=== PATIENT | female | born 1935 | race Caucasian/White ===

== ENCOUNTER 2023-04-02 10:30 | Inpatient (IN) ==
--- NOTE | 2023-04-02 10:50 | EKG ---
Test Reason : sob Blood Pressure : */* mmHG Vent. Rate : 102 BPM Atrial Rate : 102 BPM P-R Int : 226 ms QRS Dur : 78 ms QT Int : 346 ms P-R-T Axes : 73 -28 92 degrees QTc Int : 450 ms Sinus tachycardia with 1st degree AV block with premature atrial complexes Abnormal QRS-T angle, consider primary T wave abnormality Abnormal ECG No previous ECGs available Confirmed by Josh Reyna ([id number]) on 04/03/2023 11:44:30 AM Referred By: Confirmed By: Josh Reyna
[2023-04-02 10:58] LABS: ABG HCO3 24.3 mmol/L (22-26)
[2023-04-02 11:02] LABS: BILIRUBIN,URINE NEGATIVE (NEGATIVE); BLOOD/HEMOGLOBIN,URINE 2+ (NEGATIVE); GLUCOSE, URINE 4+ (NEGATIVE); KETONES,URINE 3+ (NEGATIVE); LEUKOCYTE ESTERASE ,URINE NEGATIVE (NEGATIVE); NITRITES,URINE NEGATIVE (NEGATIVE); PROTEIN,URINE 1+ (NEGATIVE); UROBILINOGEN,URINE NORMAL (NORMAL)
[2023-04-02 11:03] LABS: APPEARANCE,URINE CLEAR (CLEAR); COLOR,URINE PALE YELLOW (YELLOW)
--- NOTE | 2023-04-02 11:07 | DR.SOBA ---
HPI Time Seen Time Seen by Provider: 04/02/23 10:55 Primary Care Physician Primary Care Physician: ADILENE Complaints Chief Complaint Doctors Comments: Patient complaining of shortness of breath and congestion off and on for 2 days. Chief Complaint:: PATIENT C/O NOTED TO BE SHORTNESS OF BREATH AND CONGESTION. EMS STATES PATIENT WAS NOTED TO BE HYPOXIC UPON ARRIVAL AT SPO2 AT 79%. PATIENT WAS NOTED TO BE CYANOTIC. PATIENT WAS ADMINSTERED A DUONEB X1 AND PLACED 4LPM VIA N/C. PATIENT STATES SHE BEGAN HAVING COUGH YESTERDAY ALONG WITH SOME SLIGHT DIARRHEA. COVID-19 Coronavirus risk:travel/contact w/high risk person: No Has patient experienced Coronavirus symptoms: No Coronavirus symptoms experienced: Coughing and Shortness of Breath Source History Provided: EMS Mode of Arrival Mode of Arrival: EMS Timing Onset of Chief Complaint: 04/01/23 PMH PMH Past Medical History: Yes Past Medical History: Diabetes and Hypertension Past Medical History Comment: OVERACTIVE BLADDER, CHRONIC PAIN Past Surgical History: No Family History History of Family Medical Conditions: No Social History Does any household member use tobacco: No Alcohol Use: None Do you use any recreational Drugs:: No Lives With: Other Lives Where: Assisted Care Travel Risk Coronavirus risk:travel/contact w/high risk person: No Has patient experienced Coronavirus symptoms: No Coronavirus symptoms experienced: Coughing and Shortness of Breath Infectious screening In the last 2 months have you had wt loss of >10#?: NO Have you had fever, night sweats or hemotysis?: No Have you traveled outside the country in the last 6 months?: No Isolation: Standard ROS Review of Systems Constitutional: Other (cough with sob) Eyes: No Symptoms Reported ENTM: No Symptoms Reported Respiratoy: Non-Productive Cough and Short of Breath Cardiovascular: No Symptoms Reported Gastrointestinal/Abdominal: No Symptoms Reported Genitourinary: No Symptoms Reported Neurological: No Symptoms Reported Musculoskeletal: No Symptoms Reported Integumentary: No Symptoms Reported Hematologic/Lymphatic: No Symptoms Reported Endocrine: No Symptoms Reported Psychiatric: No Symptoms Reported PE Vital Signs Vitals: Vital Signs Temperature 99.4 F Pulse Rate 87 Pulse Rate 85 Pulse Rate 83 Pulse Rate 84 Pulse Rate 85 Pulse Rate 83 Pulse Rate 86 Pulse Rate 96 Pulse Rate 92 Pulse Rate 89 Pulse Rate 91 Pulse Rate 95 Pulse Rate 94 Pulse Rate 94 Pulse Rate 92 Pulse Rate 100 Pulse Rate 98 Pulse Rate 91 Pulse Rate 97 Pulse Rate 100 Pulse Rate 97 Pulse Rate 101 Pulse Rate 97 Pulse Rate 100 Pulse Rate 97 Pulse Rate 99 Pulse Rate 98 Pulse Rate 98 Pulse Rate 92 Pulse Rate 93 Pulse Rate 93 Pulse Rate 96 Pulse Rate 101 Pulse Rate 96 Pulse Rate 100 Pulse Rate 101 Pulse Rate 105 Pulse Rate 104 Pulse Rate 103 Respiratory Rate 23 Respiratory Rate 24 Respiratory Rate 19 Respiratory Rate 22 Respiratory Rate 23 Respiratory Rate 25 Respiratory Rate 23 Respiratory Rate 38 Respiratory Rate 18 Respiratory Rate 15 Respiratory Rate 18 Respiratory Rate 26 Respiratory Rate 19 Respiratory Rate 22 Respiratory Rate 21 Respiratory Rate 40 Respiratory Rate 31 Respiratory Rate 22 Respiratory Rate 23 Respiratory Rate 37 Respiratory Rate 24 Respiratory Rate 23 Respiratory Rate 22 Respiratory Rate 23 Respiratory Rate 23 Respiratory Rate 23 Respiratory Rate 26 Respiratory Rate 24 Respiratory Rate 22 Respiratory Rate 22 Respiratory Rate 35 Respiratory Rate 28 Respiratory Rate 35 Respiratory Rate 31 Respiratory Rate 41 Respiratory Rate 29 Respiratory Rate 32 Respiratory Rate 32 Respiratory Rate 30 Blood Pressure 129/61 Blood Pressure 139/64 Blood Pressure 147/96 Blood Pressure 142/65 Blood Pressure 140/62 Blood Pressure 145/103 Blood Pressure 155/72 Blood Pressure 135/62 Blood Pressure 141/64 Blood Pressure 153/70 Blood Pressure 135/62 Blood Pressure 145/64 Blood Pressure 133/83 Blood Pressure 125/58 O2 Sat by Pulse Oximetry 97 O2 Sat by Pulse Oximetry 98 O2 Sat by Pulse Oximetry 98 O2 Sat by Pulse Oximetry 98 O2 Sat by Pulse Oximetry 98 O2 Sat by Pulse Oximetry 98 O2 Sat by Pulse Oximetry 99 O2 Sat by Pulse Oximetry 97 O2 Sat by Pulse Oximetry 99 O2 Sat by Pulse Oximetry 96 O2 Sat by Pulse Oximetry 96 O2 Sat by Pulse Oximetry 98 O2 Sat by Pulse Oximetry 97 O2 Sat by Pulse Oximetry 97 O2 Sat by Pulse Oximetry 96 O2 Sat by Pulse Oximetry 96 O2 Sat by Pulse Oximetry 95 O2 Sat by Pulse Oximetry 95 O2 Sat by Pulse Oximetry 95 O2 Sat by Pulse Oximetry 94 O2 Sat by Pulse Oximetry 95 O2 Sat by Pulse Oximetry 94 O2 Sat by Pulse Oximetry 94 O2 Sat by Pulse Oximetry 94 O2 Sat by Pulse Oximetry 94 O2 Sat by Pulse Oximetry 94 O2 Sat by Pulse Oximetry 95 O2 Sat by Pulse Oximetry 95 O2 Sat by Pulse Oximetry 95 O2 Sat by Pulse Oximetry 97 O2 Sat by Pulse Oximetry 98 O2 Sat by Pulse Oximetry 97 O2 Sat by Pulse Oximetry 96 O2 Sat by Pulse Oximetry 96 O2 Sat by Pulse Oximetry 96 O2 Sat by Pulse Oximetry 95 O2 Sat by Pulse Oximetry 97 O2 Sat by Pulse Oximetry 96 O2 Sat by Pulse Oximetry 94 General Limitations: No Limitations and Physical Limitation (moderate distress) General Appearance: In Distress (moderATE DISTRESS) Head Head Exam: Normal Inspection, Atraumatic and Normocephalic Eyes Eye exam: Normal Appearance, PERRL and EOMI ENT ENT Exam: Normal Exam, Normal Oropharynx and Normal External Ear Exam Neck Neck Exam: Normal Inspection, Full ROM and Trachea Midline Chest Chest Inspection: Normal Inspection and Symmetric Chest Wall Rise Respiratory Respiratory Exam: Other (rhonchi) Respiratory Exam: Bilateral: Rhonchi Abdominal Exam Abdominal Exam: Normal Inspection, Normal Bowel Sounds and Soft Extremities Extremities Exam: Normal Inspection Back Back Exam: Normal Inspection Neurologic Neurological Exam: Alert, Oriented X3 and CN II-XII Intact Psychiatric Psychiatric Exam: Normal Affect and Normal Mood Skin Skin Exam: Warm, Dry and Intact MDM Differential Diagnosis Differential Diagnosis: Bronchitis, URI and Other (covid,influenza,rsv) COURSE Treatment Treatment: This patient remained remained relatively stable in the ER he had she had to be placed on oxygen at 2 L to maintain O2 sat of 95%. We did do a cardiac work-up on this patient chest x-ray is negative EKG showed sinus rhythm troponin was 62.4 her metabolic panel showed glucose of 221 rest of normal CBC was normal. The patient had an ABG done pH was 7.37 PCO2 was 42 PO2 65 bicarb 24.3. Patient had a COVID respiratory panel done and she was positive for COVID. She had a BMP done that was 396. She had a stool sample done that was negative for occult blood parasites are O AND P. Contact was made with Dr. Paz at 1700 he saw the patient for admission for COVID hypoxia and he stated the patient is to be on remdesivir as protocol Solu-Medrol 80 mg IV every 8 hours and Rocephin IV 1 g IV daily. Patient on oxygen to keep O2 sat greater than 92. Patient was advised of the intent to admit and was agreeable to the admission. ROR Labs Reviewed Laboratory Results Reviewed?: Yes 04/02/23 11:27 04/02/23 11:32 Laboratory: 04/02/23 11:42 Stool - Final WBC 11.9 X10^3/uL (3.6-10.0) H 04/02/23 11:27 RBC 4.51 X10^6/uL (3.5-5.4) 04/02/23 11:27 Hgb 14.3 g/dL (12.0-16.0) 04/02/23 11:27 Hct 43.8 % (36.0-47.0) 04/02/23 11:27 MCV 97.0 fL (80.0-100.0) 04/02/23 11:27 MCH 31.8 pg (27.0-34.0) 04/02/23 11:27 MCHC 32.8 g/dL (33.0-35.0) L 04/02/23 11:27 RDW 15.1 % (11.6-16.5) 04/02/23 11:27 Plt Count 194 X10^3/uL (150.0-450.0) 04/02/23 11: MPV 9.9 fL (7.4-11.0) 04/02/23 11:27 Neut % (Auto) 78.6 % (42.0-75.0) H 04/02/23 11:27 Lymph % (Auto) 9.4 % (21.0-51.0) L 04/02/23 11:27 [place] % (Auto) 11.7 % (0.0-13.0) 04/02/23 11:27 Eos % (Auto) 0.0 % (0.9-2.9) L 04/02/23 11:27 Baso % (Auto) 0.3 % (0.2-1.0) 04/02/23 11:27 Neut # (Auto) 9.3 x10^3/uL (2.2-4.8) H 04/02/23 11:27 Lymph # (Auto) 1.1 X10^3/uL (1.3-2.9) L 04/02/23 11:27 [place] # (Auto) 1.4 x10^3/uL (0.3-0.8) H 04/02/23 11:27 Eos # (Auto) 0.0 x10^3/uL (0.0-0.2) 04/02/23 11:27 Baso # (Auto) 0.0 X10^3/uL (0.0-0.1) 04/02/23 11:27 Absolute Nucleated RBC 0.1 /100WBC 04/02/23 11:27 Sample Site Rbra 04/02/23 10:55 ABG pH 7.370 (7.35-7.45) 04/02/23 10:55 ABG pCO2 42.0 mmHg (35.0-45.0) 04/02/23 10:55 ABG pO2 65.0 mmHg (80.0-100.0) L 04/02/23 10:55 ABG HCO3 24.3 mmol/L (22-26) 04/02/23 10:55 ABG O2 Saturation 92.0 % (90-100) 04/02/23 10:55 ABG Base Excess -1.0 mmol/L (-2.0-2.0) 04/02/23 10:55 Luis Alberto Test N/a 04/02/23 10:55 A-a Gradient 82.0 mmHg 04/02/23 10:55 FiO2 28.0 04/02/23 10:55 Blood Gas Comments Pt shmuel well elj 04/02/23 10:55 Sodium 134 mmol/L (136-145) L 04/02/23 11:32 Corrected Sodium 137 mmol/L (136-145) 04/02/23 11:32 Potassium 3.7 mmol/L (3.5-5.1) 04/02/23 11:32 Chloride 97 mmol/L (98-107) L 04/02/23 11:32 Carbon Dioxide 23.0 mmol/L (21-32) 04/02/23 11:32 BUN 12 mg/dL (7-18) 04/02/23 11:32 Creatinine 0.86 mg/dL (0.55-1.02) 04/02/23 11:32 Est GFR (MDRD) Af Amer > 60 (>60) 04/02/23 11:32 Est GFR (MDRD) Non-Af > 60 (>60) 04/02/23 11:32 Glucose 221 mg/dL (65-99) H 04/02/23 11:32 Calcium 7.8 mg/dL (8.5-10.1) L 04/02/23 11:32 Corrected Calcium 8.6 mg/dL (8.5-10.1) 04/02/23 11:32 Total Bilirubin 0.80 mg/dL (0.2-1.0) 04/02/23 11:32 AST 16 Units/L (15-37) 04/02/23 11:32 ALT 10 Units/L (12-78) L 04/02/23 11:32 Alkaline Phosphatase 73 Units/L (46-116) 04/02/23 11:32 Creatine Kinase 21 Units/L (26-192) L 04/02/23 11:32 Troponin I High Sens 62.6 ng/L (4.0-60.0) H* 04/02/23 11:32 B-Natriuretic Peptide 396 pg/mL (0-79) H 04/02/23 11:32 Total Protein 7.6 g/dL (6.4-8.2) 04/02/23 11:32 Albumin 3.0 g/dL (3.4-5.0) L 04/02/23 11:32 Globulin 4.6 g/dL (2.5-4.5) H 04/02/23 11:32 Albumin/Globulin Ratio 0.7 Ratio (1.1-2.1) L 04/02/23 11:32 Specimen Type Clean catch urine 04/02/23 10:53 Urine Color Pale yellow (YELLOW) 04/02/23 10:53 Urine Appearance Clear (CLEAR) 04/02/23 10:53 Urine pH 5.0 (5.0 - 8.0) 04/02/23 10:53 Ur Specific [place] 1.020 (1.000-1.030) 04/02/23 10:53 Urine Protein 1+ (NEGATIVE) 04/02/23 10:53 Urine Glucose (UA) 4+ (NEGATIVE) 04/02/23 10:53 Urine Ketones 3+ (NEGATIVE) 04/02/23 10:53 Urine Blood 2+ (NEGATIVE) 04/02/23 10:53 Urine Nitrite Negative (NEGATIVE) 04/02/23 10:53 Urine Bilirubin Negative (NEGATIVE) 04/02/23 10:53 Urine Urobilinogen Normal (NORMAL) 04/02/23 10:53 Ur Leukocyte Esterase Negative (NEGATIVE) 04/02/23 10:53 Urine RBC 0-2 /HPF (0-3) 04/02/23 10:53 Urine WBC 3-5 /HPF (0-5) 04/02/23 10:53 Ur Squamous Epith Cells Rare /HPF (NEGATIVE) 04/02/23 10:53 Urine Bacteria Trace /HPF (NEGATIVE) 04/02/23 10:53 Urine Mucus Rare /HPF (NEGATIVE) 04/02/23 10:53 Ur Culture Indicated? No/not indicated 04/02/23 10:53 Stl Occult Blood (IFOB) Negative (NEGATIVE) 04/02/23 11:42 Stl C. diff Tox B Gene Negative (NEGATIVE) 04/02/23 11:42 Stl C. diff 027-NAP1-BI Negative (NEGATIVE) 04/02/23 11:42 SARS-CoV-2 (PCR) Positive (NEGATIVE) A 04/02/23 11:17 Cryptosporid parvum Ag Negative (NEGATIVE) 04/02/23 11:42 Giardia lamblia Ag Negative (NEGATIVE) 04/02/23 11:42 Influenza Type A (PCR) Negative (NEGATIVE) 04/02/23 11:17 Influenza Type B (PCR) Negative (NEGATIVE) 04/02/23 11:17 RSV (PCR) Negative (NEGATIVE) 04/02/23 11:17 S. pyogenes (TEM-PCR) Not detected (NOT DETECT) 04/02/23 13:59 Opioid Opioid Risk Tool Age ([place] if 16-45): No History of Preadolescent Sexual Abuse: No Total: 0 Total Score Risk Category: Low Risk Copyright: Nabor BELL predicting aberrant behaviors Discharge Plan Diagnosis Discharge Problem: COVID-19, Hypoxia Discharge Plan Patient Disposition: 09 ADMITTED INPATIENT Condition: Stable Health Concerns: Post Hospitalization: new medications and changes needed to prevent readmission or further decline. Pt educated and given instructions on all concerns. Plan of Treatment: Continue with present treatment and follow up plan. Pt is to keep follow up appointment as instructed and take medications as ordered. Orders to Discharge Patient Discharge Orders: Transfer (Routine); Ordered 04/02/23 Ordered By: Freeman Bill Follow ups/Referrals Follow ups/Referrals: Edilma Hugo [Primary Care Provider] - 3 days Instructions Stand Alone Forms: Post Hospital Follow Up Care
[2023-04-02 11:11] LABS: BACTERIA,URINE TRACE /HPF (NEGATIVE); RBC,URINE 0-2 /HPF (0-3); SQUAMOUS EPITHELIAL CELL,UR RARE /HPF (NEGATIVE)
[2023-04-02 11:39] LABS: MEAN CORPUSCULAR HEMOGLOBIN 31.8 pg (27.0-34.0)
[2023-04-02 11:42] LABS: BASOPHILS % (AUTO) 0.3 % (0.2-1.0); HEMATOCRIT 43.8 % (36.0-47.0); HEMOGLOBIN 14.3 g/dL (12.0-16.0); LYMPHOCYTES # (AUTO) 1.1 X10^3/uL (1.3-2.9); LYMPHOCYTES % (AUTO) 9.4 % (21.0-51.0); MEAN CORPUSCULAR HGB CONC 32.8 g/dL (33.0-35.0); MEAN PLATELET VOLUME 9.9 fL (7.4-11.0); MONOCYTES # (AUTO) 1.4 x10^3/uL (0.3-0.8); MONOCYTES % (AUTO) 11.7 % (0.0-13.0); NEUTROPHILS # (AUTO) 9.3 x10^3/uL (2.2-4.8); NEUTROPHILS % (AUTO) 78.6 % (42.0-75.0); PLATELET COUNT 194 X10^3/uL (150.0-450.0); RED BLOOD COUNT 4.51 X10^6/uL (3.5-5.4); RED CELL DISTRIBUTION WIDTH 15.1 % (11.6-16.5); WHITE BLOOD COUNT 11.9 X10^3/uL (3.6-10.0)
[2023-04-02 12:04] LABS: ALANINE AMINOTRANSFERASE 10 Units/L (12-78); ALKALINE PHOSPHATASE 73 Units/L (46-116); ASPARTATE AMINO TRANSFERASE 16 Units/L (15-37); BLOOD UREA NITROGEN 12 mg/dL (7-18); CALCIUM 7.8 mg/dL (8.5-10.1); CHLORIDE 97 mmol/L (98-107); COR CA(FOR HYPOALB) 8.6 mg/dL (8.5-10.1); COR NA(FOR HYPERGLY) 137 mmol/L (136-145); CREATINE KINASE 21 Units/L (26-192); CREATININE 0.86 mg/dL (0.55-1.02); GLUCOSE 221 mg/dL (65-99); POTASSIUM 3.7 mmol/L (3.5-5.1); SODIUM 134 mmol/L (136-145); TOTAL PROTEIN 7.6 g/dL (6.4-8.2); eGFR NON BLACK RACES > 60 (>60)
[2023-04-02 12:24] LABS: CRYPTOSPORIDIUM PARVUM ANTIGEN NEGATIVE (NEGATIVE); GIARDIA LAMBLIA ANTIGEN NEGATIVE (NEGATIVE)
--- NOTE | 2023-04-02 14:15 | RAD ---
EXAM:AP chestHISTORY:Congestion hypoxiaCOMPARISON:NoneFINDINGS:Normal heart size with no definite pulmonary infiltrate, CHF or pleural fluid. There is degenerative calcification of the mitral annulus.IMPRESSION:No acute chest findings.THIS IS AN ELECTRONICALLY VERIFIED FINAL [id number]/02/2023 2:11 PM - Electronically signed by Albert Godwin MD
[2023-04-02] MEDS ORDERED: ROCEPHIN VIAL 1 GRAM ONE (17:08)
[2023-04-02] MEDS ORDERED: SOLU-Medrol 40 MG VIAL ONE (17:08)
[2023-04-02] MEDS ORDERED: SOLU-Medrol 40 MG VIAL IVP ONE (17:13)
[2023-04-02] MEDS ORDERED: ROCEPHIN VIAL 1 GRAM IM ONE (17:13)
[2023-04-02] MEDS ORDERED: ROCEPHIN VIAL 1 GRAM IV ONE (17:15)
[2023-04-02] MEDS: ROCEPHIN VIAL 1 GRAM 1 G in NS 100 ML IV 100 ML IV SCH (18:06)
[2023-04-02 18:36] VITALS: BMI 32.1
[2023-04-02] MEDS ORDERED: CONSULT PHARMACY - POTASSIUM & MAGNESIUM XX SCH (19:00)
[2023-04-02] MEDS: XOPENEX 1.25 MG/3 ML NEBULE NEB SCH (20:50)
[2023-04-02] MEDS: NovoLIN R (or HumuLIN R) SUBCUT PRN (20:55)
[2023-04-02] MEDS ORDERED: KLOR-CON PO SCH (21:00)
[2023-04-02] MEDS: SNACK - Diabetic Appropriate PO SCH (21:17)
[2023-04-02] MEDS ORDERED: ULTRAM PO PRN (21:22)
[2023-04-02] MEDS: TYLENOL 325 MG TAB PO PRN (22:00)
[2023-04-02] MEDS: SOLU-Medrol 40 MG VIAL IVP SCH (22:01)
[2023-04-02] MEDS ORDERED: ROBITUSSIN DM PO PRN (23:50)
[2023-04-03] MEDS: SOLU-Medrol 40 MG VIAL IVP SCH ×3 (05:31→22:16)
[2023-04-03] MEDS: XOPENEX 1.25 MG/3 ML NEBULE NEB SCH ×3 (05:40→20:00)
[2023-04-03] MEDS: NovoLIN R (or HumuLIN R) SUBCUT PRN ×4 (05:52→21:04)
[2023-04-03 06:14] LABS: BASOPHILS % (AUTO) 0.2 % (0.2-1.0); HEMATOCRIT 41.7 % (36.0-47.0); HEMOGLOBIN 13.9 g/dL (12.0-16.0); LYMPHOCYTES # (AUTO) 0.8 X10^3/uL (1.3-2.9); LYMPHOCYTES % (AUTO) 8.4 % (21.0-51.0); MEAN CORPUSCULAR HEMOGLOBIN 31.8 pg (27.0-34.0); MEAN CORPUSCULAR HGB CONC 33.3 g/dL (33.0-35.0); MEAN CORPUSCULAR VOLUME 95.6 fL (80.0-100.0); MEAN PLATELET VOLUME 9.2 fL (7.4-11.0); MONOCYTES # (AUTO) 0.3 x10^3/uL (0.3-0.8); MONOCYTES % (AUTO) 3.4 % (0.0-13.0); NEUTROPHILS # (AUTO) 7.9 x10^3/uL (2.2-4.8); PLATELET COUNT 222 X10^3/uL (150.0-450.0); RED BLOOD COUNT 4.37 X10^6/uL (3.5-5.4); RED CELL DISTRIBUTION WIDTH 15.1 % (11.6-16.5)
[2023-04-03 06:28] LABS: ALANINE AMINOTRANSFERASE 9 Units/L (12-78); ALBUMIN 2.8 g/dL (3.4-5.0); ALKALINE PHOSPHATASE 66 Units/L (46-116); ASPARTATE AMINO TRANSFERASE 14 Units/L (15-37); BLOOD UREA NITROGEN 23 mg/dL (7-18); CALCIUM 8.4 mg/dL (8.5-10.1); CARBON DIOXIDE 22.7 mmol/L (21-32); CHLORIDE 99 mmol/L (98-107); COR CA(FOR HYPOALB) 9.4 mg/dL (8.5-10.1); COR NA(FOR HYPERGLY) 139 mmol/L (136-145); CREATININE 0.74 mg/dL (0.55-1.02); GLUCOSE 271 mg/dL (65-99); POTASSIUM 4.3 mmol/L (3.5-5.1); SODIUM 135 mmol/L (136-145); TOTAL PROTEIN 7.5 g/dL (6.4-8.2); eGFR NON BLACK RACES > 60 (>60)
[2023-04-03] MEDS: ROCEPHIN VIAL 1 GRAM 1 G in NS 100 ML IV 100 ML IV SCH (09:06)
[2023-04-03] MEDS: LOVENOX INJ 40 MG SYR SC SCH (09:08)
[2023-04-03] MEDS ORDERED: ZOFRAN INJ 4 MG VIAL IVP ONE (09:48)
[2023-04-03] MEDS ORDERED: REMDESIVIR 200 MG in NS 100 ML IV 140 ML IV ONE (09:49)
[2023-04-03] MEDS ORDERED: REMDESIVIR 200 MG in NS 250 ML IV 250 ML IV NR (09:49)
[2023-04-03] MEDS: PROTONIX INJ 40 MG VIAL IVP SCH ×2 (11:05→20:46)
[2023-04-03] MEDS: TYLENOL 325 MG TAB PO PRN ×2 (11:06→17:04)
[2023-04-03] MEDS: NS 1,000 ML IV 1,000 ML IV SCH (11:17)
[2023-04-03] MEDS: ROBITUSSIN DM PO SCH ×4 (13:26→22:16)
[2023-04-03] MEDS: SNACK - Diabetic Appropriate PO SCH (19:32)
[2023-04-04] MEDS: ROBITUSSIN DM PO SCH ×4 (01:13→14:11)
[2023-04-04] MEDS: XOPENEX 1.25 MG/3 ML NEBULE NEB SCH ×3 (05:44→21:03)
[2023-04-04] MEDS: SOLU-Medrol 40 MG VIAL IVP SCH ×3 (05:47→21:52)
[2023-04-04] MEDS: NovoLIN R (or HumuLIN R) SUBCUT PRN ×4 (05:48→21:59)
--- NOTE | 2023-04-04 06:05 | RAD ---
EXAM:Portable chestHISTORY:Shortness of breath, COVIDCOMPARISON:04/02/2023FINDINGS:Heart is enlarged. No congestive heart failure is noted. Aorta is calcified and mildly ectatic. Lungs are free of acute infiltrates. No pleural effusions are identified. Bony thorax is unremarkable.IMPRESSION:Mild cardiomegaly without congestive heart failureNo definite infiltratesTHIS IS AN ELECTRONICALLY VERIFIED FINAL [id number]/04/2023 6:01 AM - Electronically signed by Sung Oakley MD
[2023-04-04 06:08] LABS: BASOPHILS % (AUTO) 0.3 % (0.2-1.0); HEMATOCRIT 39.9 % (36.0-47.0); HEMOGLOBIN 13.2 g/dL (12.0-16.0); LYMPHOCYTES # (AUTO) 0.6 X10^3/uL (1.3-2.9); LYMPHOCYTES % (AUTO) 5.3 % (21.0-51.0); MEAN CORPUSCULAR HEMOGLOBIN 31.3 pg (27.0-34.0); MEAN PLATELET VOLUME 9.4 fL (7.4-11.0); MONOCYTES # (AUTO) 0.5 x10^3/uL (0.3-0.8); NEUTROPHILS # (AUTO) 10.7 x10^3/uL (2.2-4.8); NEUTROPHILS % (AUTO) 90.4 % (42.0-75.0); PLATELET COUNT 229 X10^3/uL (150.0-450.0); RED BLOOD COUNT 4.21 X10^6/uL (3.5-5.4); RED CELL DISTRIBUTION WIDTH 14.7 % (11.6-16.5); WHITE BLOOD COUNT 11.8 X10^3/uL (3.6-10.0)
[2023-04-04 06:24] LABS: ALANINE AMINOTRANSFERASE < 6 Units/L (12-78); ALBUMIN 2.5 g/dL (3.4-5.0); ALKALINE PHOSPHATASE 57 Units/L (46-116); ASPARTATE AMINO TRANSFERASE 9 Units/L (15-37); BLOOD UREA NITROGEN 31 mg/dL (7-18); CALCIUM 8.2 mg/dL (8.5-10.1); CARBON DIOXIDE 25.2 mmol/L (21-32); CHLORIDE 96 mmol/L (98-107); COR CA(FOR HYPOALB) 9.4 mg/dL (8.5-10.1); COR NA(FOR HYPERGLY) 135 mmol/L (136-145); CREATININE 0.73 mg/dL (0.55-1.02); GLUCOSE 316 mg/dL (65-99); POTASSIUM 4.6 mmol/L (3.5-5.1); SODIUM 130 mmol/L (136-145); TOTAL PROTEIN 6.9 g/dL (6.4-8.2); eGFR NON BLACK RACES > 60 (>60)
[2023-04-04 07:01] LABS: BAND NEUTROPHILS % 3 % (0-10); PLATELET MORPHOLOGY COMMENT NORMAL (NORMAL)
--- NOTE | 2023-04-04 07:28 | RAD ---
EXAM:Portable chestHISTORY:COVID, shortness of breathCOMPARISON:04/03/2023FINDINGS:Hear t remains mildly enlarged. Criselda are normal. No congestive heart failure is noted. No acute infiltrates or pleural effusions are identified. Bony thorax is unremarkable.IMPRESSION:Mild cardiomegaly without congestive heart failureNo acute infiltratesTHIS IS AN ELECTRONICALLY VERIFIED FINAL [id number]/04/2023 7:25 AM - Electronically signed by Sung Oakley MD
[2023-04-04] MEDS: PROTONIX INJ 40 MG VIAL IVP SCH ×2 (08:49→21:52)
--- NOTE | 2023-04-04 08:49 | DR.H&P ---
H&P History & Physical for Day of: H&P Date: 04/02/23 Chief Complaint Chief Complaint: WEAKNESS, SOB Allergies Allergies Allergy/AdvReac Type Severity Reaction Status Date / Time codeine Allergy Verified 04/02/23 10:53 History of Present Illness History of Present Illness: PT IS 87 WF, ER ADMISSION AFTER PRESENTING WITH C/O SHORTNESS OF BREATH AND CONGESTION. EMS STATES PATIENT WAS NOTED TO BE HYPOXIC UPON ARRIVAL AT SPO2 AT 79%. PATIENT WAS NOTED TO BE CYANOTIC. PATIENT WAS ADMINSTERED A DUONEB X1 AND PLACED 4LPM VIA N/C. PATIENT STATES SHE BEGAN HAVING COUGH YESTERDAY ALONG WITH SOME SLIGHT DIARRHEA. PT LIVES AT AN ASSISTED LIVING IN [place] AND DENIES ANY KNOWN CAD. PT ADMITTED FOR TREATMENT OF ACUTE ILLNESS. Past Medical History Past Medical History: Diabetes and Hypertension Past Surgical History Surgical History: Hysterectomy and Tonsillectomy Family History Family Medical History: Diabetes Mellitus, Cancer and Heart Failure Social History Does any household member use tobacco: No Alcohol Use: None Drug Use: None Labs 04/04/23 05:36 04/04/23 05:36 Labs: 04/02/23 11:42 Stool Stool Culture - Final 04/02/23 11:42 Stool - Final 04/02/23 21:10 Sputum - Expectorated Sputum Sputum Culture - Final 04/02/23 21:10 Sputum - Expectorated Sputum - Final Laboratory WBC 11.8 X10^3/uL (3.6-10.0) H 04/04/23 05:36 RBC 4.21 X10^6/uL (3.5-5.4) 04/04/23 05:36 Hgb 13.2 g/dL (12.0-16.0) 04/04/23 05:36 Hct 39.9 % (36.0-47.0) 04/04/23 05:36 MCV 95.0 fL (80.0-100.0) 04/04/23 05:36 MCH 31.3 pg (27.0-34.0) 04/04/23 05:36 MCHC 33.0 g/dL (33.0-35.0) 04/04/23 05:36 RDW 14.7 % (11.6-16.5) 04/04/23 05:36 Plt Count 229 X10^3/uL (150.0-450.0) 04/04/23 05:36 Plt Count Comment Adequate (ADEQUATE) 04/04/23 05:36 MPV 9.4 fL (7.4-11.0) 04/04/23 05:36 Neut % (Auto) 90.4 % (42.0-75.0) H 04/04/23 05:36 Lymph % (Auto) 5.3 % (21.0-51.0) L 04/04/23 05:36 [place] % (Auto) 4.0 % (0.0-13.0) 04/04/23 05:36 Eos % (Auto) 0.0 % (0.9-2.9) L 04/04/23 05:36 Baso % (Auto) 0.3 % (0.2-1.0) 04/04/23 05:36 Neut # (Auto) 10.7 x10^3/uL (2.2-4.8) H 04/04/23 05:36 Lymph # (Auto) 0.6 X10^3/uL (1.3-2.9) L 04/04/23 05:36 [place] # (Auto) 0.5 x10^3/uL (0.3-0.8) 04/04/23 05:36 Eos # (Auto) 0.0 x10^3/uL (0.0-0.2) 04/04/23 05:36 Baso # (Auto) 0.0 X10^3/uL (0.0-0.1) 04/04/23 05:36 Absolute Nucleated RBC 0.0 /100WBC 04/04/23 05:36 Total Counted 100 04/04/23 05:36 Neutrophils % (Manual) 89 % (39-76) H 04/04/23 05:36 Band Neutrophils % 3 % (0-10) 04/04/23 05:36 Lymphocytes % (Manual) 5 % (13-43) L 04/04/23 05:36 Monocytes % (Manual) 3 % (4-9) L 04/04/23 05:36 Plt Morphology Comment Normal (NORMAL) 04/04/23 05:36 RBC Morphology Normal (NORMAL) 04/04/23 05:36 Sample Site [facility] 04/02/23 10:55 ABG pH 7.370 (7.35-7.45) 04/02/23 10:55 ABG pCO2 42.0 mmHg (35.0-45.0) 04/02/23 10:55 ABG pO2 65.0 mmHg (80.0-100.0) L 04/02/23 10:55 ABG HCO3 24.3 mmol/L (22-26) 04/02/23 10:55 ABG O2 Saturation 92.0 % (90-100) 04/02/23 10:55 ABG Base Excess -1.0 mmol/L (-2.0-2.0) 04/02/23 10:55 Luis Alberto Test N/a 04/02/23 10:55 A-a Gradient 82.0 mmHg 04/02/23 10:55 FiO2 28.0 04/02/23 10:55 Blood Gas Comments Pt shmuel well elj 04/02/23 10:55 Sodium 130 mmol/L (136-145) L 04/04/23 05:36 Corrected Sodium 135 mmol/L (136-145) L 04/04/23 05:36 Potassium 4.6 mmol/L (3.5-5.1) 04/04/23 05:36 Chloride 96 mmol/L (98-107) L 04/04/23 05:36 Carbon Dioxide 25.2 mmol/L (21-32) 04/04/23 05:36 BUN 31 mg/dL (7-18) H 04/04/23 05:36 Creatinine 0.73 mg/dL (0.55-1.02) 04/04/23 05:36 Est GFR (MDRD) Af Amer > 60 (>60) 04/04/23 05:36 Est GFR (MDRD) Non-Af > 60 (>60) 04/04/23 05:36 Glucose 316 mg/dL (65-99) H 04/04/23 05:36 POC Glucose (mg/dL) 313 mg/dL (65-99) H 04/04/23 05:29 Calcium 8.2 mg/dL (8.5-10.1) L 04/04/23 05:36 Corrected Calcium 9.4 mg/dL (8.5-10.1) 04/04/23 05:36 Magnesium 2.1 mg/dL (2.0-2.9) 04/02/23 11:32 Total Bilirubin 0.50 mg/dL (0.2-1.0) 04/04/23 05:36 AST 9 Units/L (15-37) L 04/04/23 05:36 ALT < 6 Units/L (12-78) L 04/04/23 05:36 Alkaline Phosphatase 57 Units/L (46-116) 04/04/23 05:36 Creatine Kinase 10 Units/L (26-192) L 04/03/23 21:00 Troponin I High Sens 51.9 ng/L (4.0-60.0) 04/03/23 21:00 B-Natriuretic Peptide 396 pg/mL (0-79) H 04/02/23 11:32 Total Protein 6.9 g/dL (6.4-8.2) 04/04/23 05:36 Albumin 2.5 g/dL (3.4-5.0) L 04/04/23 05:36 Globulin 4.4 g/dL (2.5-4.5) 04/04/23 05:36 Albumin/Globulin Ratio 0.6 Ratio (1.1-2.1) L 04/04/23 05:36 Specimen Type Clean catch urine 04/02/23 10:53 Urine Color Pale yellow (YELLOW) 04/02/23 10:53 Urine Appearance Clear (CLEAR) 04/02/23 10:53 Urine pH 5.0 (5.0 - 8.0) 04/02/23 10:53 Ur Specific [place] 1.020 (1.000-1.030) 04/02/23 10:53 Urine Protein 1+ (NEGATIVE) 04/02/23 10:53 Urine Glucose (UA) 4+ (NEGATIVE) 04/02/23 10:53 Urine Ketones 3+ (NEGATIVE) 04/02/23 10:53 Urine Blood 2+ (NEGATIVE) 04/02/23 10:53 Urine Nitrite Negative (NEGATIVE) 04/02/23 10:53 Urine Bilirubin Negative (NEGATIVE) 04/02/23 10:53 Urine Urobilinogen Normal (NORMAL) 04/02/23 10:53 Ur Leukocyte Esterase Negative (NEGATIVE) 04/02/23 10:53 Urine RBC 0-2 /HPF (0-3) 04/02/23 10:53 Urine WBC 3-5 /HPF (0-5) 04/02/23 10:53 Ur Squamous Epith Cells Rare /HPF (NEGATIVE) 04/02/23 10:53 Urine Bacteria Trace /HPF (NEGATIVE) 04/02/23 10:53 Urine Mucus Rare /HPF (NEGATIVE) 04/02/23 10:53 Ur Culture Indicated? No/not indicated 04/02/23 10:53 Stl Occult Blood (IFOB) Negative (NEGATIVE) 04/02/23 11:42 Stl C. diff Tox B Gene Negative (NEGATIVE) 04/02/23 11:42 Stl C. diff 027-NAP1-BI Negative (NEGATIVE) 04/02/23 11:42 SARS-CoV-2 (PCR) Positive (NEGATIVE) A 04/02/23 11:17 Cryptosporid parvum Ag Negative (NEGATIVE) 04/02/23 11:42 Giardia lamblia Ag Negative (NEGATIVE) 04/02/23 11:42 Influenza Type A (PCR) Negative (NEGATIVE) 04/02/23 11:17 Influenza Type B (PCR) Negative (NEGATIVE) 04/02/23 11:17 RSV (PCR) Negative (NEGATIVE) 04/02/23 11:17 S. pyogenes (TEM-PCR) Not detected (NOT DETECT) 04/02/23 13:59 Review of Systems Constitutional: Fever, Chills and Weakness Eyes: No Symptoms Reported ENT: Nose Congestion Respiratory: Shortness of Breath Cardiovascular: No Symptoms Reported Gastrointestinal: Diarrhea and Other (NO APPETITE) Genitourinary: No Symptoms Reported Musculoskeletal: No Symptoms Reported Skin: No Symptoms Reported Neurological: Weakness Physical Exam Vital Signs: Vital Signs Temperature 97.8 F Pulse Rate [Brachial] 60 Respiratory Rate 18 Blood Pressure [Left Arm] 144/71 O2 Sat by Pulse Oximetry 97 Oriented: Normal Eyes: Normal Ear: Normal Nose: Normal Throat: Dry Respiratory: Diminished Throughout Cardiovascular: Normal : Normal Auscultation: Bowel Sounds: Normal Palpation: Normal Tenderness: Normal Skin: Normal Musculoskeletal: Motor Deficit Mood Description: Calm Speech Pattern: Clear and Appropriate Assessment/Plan (1) COVID-19: Narrative Support Text: ADMIT, SUPPLEMENTAL O2, RESP THERAPY IV HYDRATON, I&OS SERIAL CE AND EKG CP CONTROL, VERIFY HOME MEDICATIONS IV SOLUMEDROL STARTED IN THE ER Status: Acute (2) Hypoxia: Status: Acute (3) Dehydration: Status: Acute (4) Abnormal cardiac enzyme level: Status: Acute
[2023-04-04] MEDS: REMDESIVIR 100 MG in NS 250 ML IV 250 ML IV SCH (08:51)
[2023-04-04] MEDS: LOVENOX INJ 40 MG SYR SC SCH (08:54)
--- NOTE | 2023-04-04 08:55 | PCM.PROG ---
Progress Note Progress Note for Day of Date of Exam: 04/03/23 Subjective Subjective: PT IS 87 WF, ER ADMISSION WITH COVID 19 AND HYPOXIA. PT HAD ELEVATED TROPONIN LEVELS ON ADMISSION. RESULTS REVIEWED WITH PATIENT AND FAMILY AT BEDSIDE. THEY REPORTED PMH OF DM AND HTN, DENIES ANY KNOWN CAD. FAMILY REQUESTED REMDESIVIRT TREATMENT. PT CO NAUSEA AND DIFFUSE WEAKNESS. PT IS CURRENTLY ON IV SOLU MEDROL, SUPPLEMENTAL O2 AND RESP THERAPY. PT CO INDIGESTION SYMPTOMS. PT WAS STARTED ON PROTONIX BID AND CONTINUE GENTLE IV HYDRATION. PT NEEDS REPEAT SERIAL CE AND CXR. CONTINUE BP MONITORING AND CARDIAC MONITORING. Past Medical Family Social History Allergies: Allergies codeine Allergy (Verified 04/02/23 10:53) Vital Signs and I&O's Vital Signs: Vital Signs Temperature 98.4 F Temperature 97.8 F Pulse Rate [Brachial] 75 Pulse Rate [Brachial] 60 Respiratory Rate 18 Respiratory Rate 18 Blood Pressure [Left Arm] 152/68 Blood Pressure [Left Arm] 144/71 O2 Sat by Pulse Oximetry 95 O2 Sat by Pulse Oximetry 97 Intake and Output: Intake & Output 04/01/23 04/02/23 04/03/23 04/04/23 11:59 11:59 11:59 11:59 Intake Total 237 / 237 787 / 787 Output Total 1220 / 1220 1350 / 1350 Balance -983 / -983 -563 / -563 Physical Exam Oriented: Normal Eyes: Normal Ear: Normal Nose: Normal Throat: Dry Cardiovascular: Normal : Normal Auscultation: Bowel Sounds: Normal Tenderness: Normal Skin: Normal Musculoskeletal: Motor Deficit Mood Description: Calm Speech Pattern: Clear and Appropriate Laboratory and Diagnostics 04/04/23 05:36 04/04/23 05:36 Labs: 04/02/23 11:42 Stool Stool Culture - Final 04/02/23 11:42 Stool - Final 04/02/23 21:10 Sputum - Expectorated Sputum Sputum Culture - Final 04/02/23 21:10 Sputum - Expectorated Sputum - Final Laboratory WBC 11.8 X10^3/uL (3.6-10.0) H 04/04/23 05:36 RBC 4.21 X10^6/uL (3.5-5.4) 04/04/23 05:36 Hgb 13.2 g/dL (12.0-16.0) 04/04/23 05:36 Hct 39.9 % (36.0-47.0) 04/04/23 05:36 MCV 95.0 fL (80.0-100.0) 04/04/23 05:36 MCH 31.3 pg (27.0-34.0) 04/04/23 05:36 MCHC 33.0 g/dL (33.0-35.0) 04/04/23 05:36 RDW 14.7 % (11.6-16.5) 04/04/23 05:36 Plt Count 229 X10^3/uL (150.0-450.0) 04/04/23 05:36 Plt Count Comment Adequate (ADEQUATE) 04/04/23 05:36 MPV 9.4 fL (7.4-11.0) 04/04/23 05:36 Neut % (Auto) 90.4 % (42.0-75.0) H 04/04/23 05:36 Lymph % (Auto) 5.3 % (21.0-51.0) L 04/04/23 05:36 [place] % (Auto) 4.0 % (0.0-13.0) 04/04/23 05:36 Eos % (Auto) 0.0 % (0.9-2.9) L 04/04/23 05:36 Baso % (Auto) 0.3 % (0.2-1.0) 04/04/23 05:36 Neut # (Auto) 10.7 x10^3/uL (2.2-4.8) H 04/04/23 05:36 Lymph # (Auto) 0.6 X10^3/uL (1.3-2.9) L 04/04/23 05:36 [place] # (Auto) 0.5 x10^3/uL (0.3-0.8) 04/04/23 05:36 Eos # (Auto) 0.0 x10^3/uL (0.0-0.2) 04/04/23 05:36 Baso # (Auto) 0.0 X10^3/uL (0.0-0.1) 04/04/23 05:36 Absolute Nucleated RBC 0.0 /100WBC 04/04/23 05:36 Total Counted 100 04/04/23 05:36 Neutrophils % (Manual) 89 % (39-76) H 04/04/23 05:36 Band Neutrophils % 3 % (0-10) 04/04/23 05:36 Lymphocytes % (Manual) 5 % (13-43) L 04/04/23 05:36 Monocytes % (Manual) 3 % (4-9) L 04/04/23 05:36 Plt Morphology Comment Normal (NORMAL) 04/04/23 05:36 RBC Morphology Normal (NORMAL) 04/04/23 05:36 Sample Site Rb 04/02/23 10:55 ABG pH 7.370 (7.35-7.45) 04/02/23 10:55 ABG pCO2 42.0 mmHg (35.0-45.0) 04/02/23 10:55 ABG pO2 65.0 mmHg (80.0-100.0) L 04/02/23 10:55 ABG HCO3 24.3 mmol/L (22-26) 04/02/23 10:55 ABG O2 Saturation 92.0 % (90-100) 04/02/23 10:55 ABG Base Excess -1.0 mmol/L (-2.0-2.0) 04/02/23 10:55 Luis Alberto Test N/a 04/02/23 10:55 A-a Gradient 82.0 mmHg 04/02/23 10:55 FiO2 28.0 04/02/23 10:55 Blood Gas Comments Pt shmuel well elj 04/02/23 10:55 Sodium 130 mmol/L (136-145) L 04/04/23 05:36 Corrected Sodium 135 mmol/L (136-145) L 04/04/23 05:36 Potassium 4.6 mmol/L (3.5-5.1) 04/04/23 05:36 Chloride 96 mmol/L (98-107) L 04/04/23 05:36 Carbon Dioxide 25.2 mmol/L (21-32) 04/04/23 05:36 BUN 31 mg/dL (7-18) H 04/04/23 05:36 Creatinine 0.73 mg/dL (0.55-1.02) 04/04/23 05:36 Est GFR (MDRD) Af Amer > 60 (>60) 04/04/23 05:36 Est GFR (MDRD) Non-Af > 60 (>60) 04/04/23 05:36 Glucose 316 mg/dL (65-99) H 04/04/23 05:36 POC Glucose (mg/dL) 313 mg/dL (65-99) H 04/04/23 05:29 Calcium 8.2 mg/dL (8.5-10.1) L 04/04/23 05:36 Corrected Calcium 9.4 mg/dL (8.5-10.1) 04/04/23 05:36 Magnesium 2.1 mg/dL (2.0-2.9) 04/02/23 11:32 Total Bilirubin 0.50 mg/dL (0.2-1.0) 04/04/23 05:36 AST 9 Units/L (15-37) L 04/04/23 05:36 ALT < 6 Units/L (12-78) L 04/04/23 05:36 Alkaline Phosphatase 57 Units/L (46-116) 04/04/23 05:36 Creatine Kinase 10 Units/L (26-192) L 04/03/23 21:00 Troponin I High Sens 51.9 ng/L (4.0-60.0) 04/03/23 21:00 B-Natriuretic Peptide 396 pg/mL (0-79) H 04/02/23 11:32 Total Protein 6.9 g/dL (6.4-8.2) 04/04/23 05:36 Albumin 2.5 g/dL (3.4-5.0) L 04/04/23 05:36 Globulin 4.4 g/dL (2.5-4.5) 04/04/23 05:36 Albumin/Globulin Ratio 0.6 Ratio (1.1-2.1) L 04/04/23 05:36 Specimen Type Clean catch urine 04/02/23 10:53 Urine Color Pale yellow (YELLOW) 04/02/23 10:53 Urine Appearance Clear (CLEAR) 04/02/23 10:53 Urine pH 5.0 (5.0 - 8.0) 04/02/23 10:53 Ur Specific [place] 1.020 (1.000-1.030) 04/02/23 10:53 Urine Protein 1+ (NEGATIVE) 04/02/23 10:53 Urine Glucose (UA) 4+ (NEGATIVE) 04/02/23 10:53 Urine Ketones 3+ (NEGATIVE) 04/02/23 10:53 Urine Blood 2+ (NEGATIVE) 04/02/23 10:53 Urine Nitrite Negative (NEGATIVE) 04/02/23 10:53 Urine Bilirubin Negative (NEGATIVE) 04/02/23 10:53 Urine Urobilinogen Normal (NORMAL) 04/02/23 10:53 Ur Leukocyte Esterase Negative (NEGATIVE) 04/02/23 10:53 Urine RBC 0-2 /HPF (0-3) 04/02/23 10:53 Urine WBC 3-5 /HPF (0-5) 04/02/23 10:53 Ur Squamous Epith Cells Rare /HPF (NEGATIVE) 04/02/23 10:53 Urine Bacteria Trace /HPF (NEGATIVE) 04/02/23 10:53 Urine Mucus Rare /HPF (NEGATIVE) 04/02/23 10:53 Ur Culture Indicated? No/not indicated 04/02/23 10:53 Stl Occult Blood (IFOB) Negative (NEGATIVE) 04/02/23 11:42 Stl C. diff Tox B Gene Negative (NEGATIVE) 04/02/23 11:42 Stl C. diff 027-NAP1-BI Negative (NEGATIVE) 04/02/23 11:42 SARS-CoV-2 (PCR) Positive (NEGATIVE) A 04/02/23 11:17 Cryptosporid parvum Ag Negative (NEGATIVE) 04/02/23 11:42 Giardia lamblia Ag Negative (NEGATIVE) 04/02/23 11:42 Influenza Type A (PCR) Negative (NEGATIVE) 04/02/23 11:17 Influenza Type B (PCR) Negative (NEGATIVE) 04/02/23 11:17 RSV (PCR) Negative (NEGATIVE) 04/02/23 11:17 S. pyogenes (TEM-PCR) Not detected (NOT DETECT) 04/02/23 13:59 Plan (1) COVID-19: Status: Acute Narrative Support Text: CONTINUE IV HYDRATION REMDESIVIR, IV ATBX REPEAT AM CXR, RESP THERAPY SUPPLEMENTAL O2, CARDIAC MONITORING (2) Hypoxia: Status: Acute (3) Dehydration: Status: Acute (4) Abnormal cardiac enzyme level: Status: Acute
[2023-04-04] MEDS: NS 1,000 ML IV 1,000 ML IV SCH (11:52)
[2023-04-04] MEDS: ROCEPHIN VIAL 1 GRAM 1 G in NS 100 ML IV 100 ML IV SCH (11:52)
[2023-04-04] MEDS ORDERED: NORCO 5/325 MG TAB PO PRN (13:38)
[2023-04-04] MEDS: JANUVIA PO SCH (14:35)
[2023-04-04] MEDS: NEURONTIN TAB 600 MG PO SCH ×2 (16:29→21:52)
--- NOTE | 2023-04-04 17:52 | PCM.PROG ---
Progress Note - Progress Note for Day of Date of Exam: 04/04/23 - Subjective Subjective: IS A 87 YEAR OLD PATIENT OF OURS. SHE IS CURRENTLY INPATIENT STATUS FOR TREATMENT OF COVID-19, HYPOXIA, DEHYDRATION, AND ABNORMAL CARDIAC ENZYMES. SHE HAS A PMH OF DM II, HTN, OVERACTIVE BLADDER, AND CHRONIC PAIN. SHE DENIES HX OF CAD. ACCORDING TO PATIENT, HER SX OF COUGH, SOB, AND CONGESTION STARTED TWO DAYS PRIOR TO ADMISSION. SHE WAS HYPOXIC WITH OXYGEN SATURATIONS IN THE UPPER 70s UPON EMS ARRIVAL. TODAY, SHE IS ALERT AND ORIENTED, LYING IN BED ON MORNING ROUNDS. SHE COMPLAINS OF GENERALIZED WEAKNESS AND NAUSEA THIS MORNING. SHE DENIES SIGNIFICANT IMPROVEMENT IN SX SINCE ADMISSION. ON EXAMINATION, HEART IS REGULAR IN RATE AND RHYTHM. BILATERAL LUNGS ARE NOTED WITH DIMINISHED LUNG SOUNDS THROUGHOUT. ABDOMEN IS ROUND, SOFT, AND NON-TENDER WITH NORMAL BOWEL SOUNDS NOTED IN ALL QUADRANTS. THERE IS GOOD RANGE OF MOTION TO UPPER AND LOWER EXTREMITIES WITH NO EDEMA NOTED. HER VITALS THIS MORNING ARE: 98.4-75-18-95%-152/68. LABS WERE OBTAINED. WBC 11.8, RBC 4.21, HGB 13.2, RBC 39.9, PLT COUNT 229, SODIUM 130, POTASSIUM 4.6, CHLORIDE 96, BUN 31, CREATININE 0.73, GLUCOSE 316, CALCIUM 8.2, TOTAL BILI 0.50, AST 9, ALT <6, ALK PHOS 57, TOTAL PROTEIN 6.9, ALBUMIN 2.5. STOOL STUDIES WERE NEGATIVE. SPUTUM CULTURE WAS SET UP. A CHEST XRAY WAS OBTAINED AND REVEALED: Mild cardiomegaly without congestive heart failure. No acute infiltrates. SHE IS CURRENTLY RECEVING NORMAL SALINE AT 75 ML/HR, REMDESIVIR 100MG IV DAILY, ROCEPHIN 1G IV DAILY, LOVENOX 40MG SC DAILY, SOLU-MEDROL 80MG IV Q8H, PROTONIX 40MG IV BID, XOPENEX NEB TX TID, HUMULIN R SLIDING SCLAE, AND HER HOME MEDICATONS WERE RESUMED. OTHERWISE, WE WILL FOLLOW-UP WITH AM LABS AND CONTINUE TO MONITOR. TIME SPENT ON CLINICAL ASSESSMENT, REVIEWING LABS AND IMAGING, DECISION MAKING, AND DOCUMENTATION GREATER THAN 45 MINUTES. - Past Medical Family Social History Past Med/Fam/Surg Hx: No changes since H&P Allergies: Allergies codeine Allergy (Verified 04/02/23 10:53) - Review of Systems ROS: No change since H&P - Vital Signs and I&O's Vital Signs: Vital Signs Temperature 98.3 F Temperature 98.3 F Pulse Rate [Brachial] 80 Pulse Rate [Brachial] 75 Respiratory Rate 18 Respiratory Rate 24 Blood Pressure [Left Arm] 148/65 Blood Pressure [Left Arm] 132/60 O2 Sat by Pulse Oximetry 95 O2 Sat by Pulse Oximetry 93 Intake and Output: Intake & Output 04/02/23 04/03/23 04/04/23 04/05/23 11:59 11:59 11:59 11:59 Intake Total 237 / 237 787 / 787 827 / 827 Output Total 1220 / 1220 1350 / 1350 825 / 825 Balance -983 / -983 -563 / -563 - Physical Exam Oriented: Normal Eyes: Normal Ear: Normal Nose: Normal Throat: Dry Respiratory: Generalized, Diminished Cardiovascular: Normal : Normal Auscultation: Bowel Sounds: Normal Palpation: Normal Tenderness: Normal Skin: Normal Musculoskeletal: Motor Deficit Psychiatric: Normal Mood Description: Calm Speech Pattern: Appropriate, Delayed - Laboratory and Diagnostics Result Diagrams: 04/04/23 05:36 04/04/23 05:36 Labs: 04/02/23 11:42 Stool Stool Culture - Final 04/02/23 11:42 Stool - Final 04/02/23 21:10 Sputum - Expectorated Sputum Sputum Culture - Final 04/02/23 21:10 Sputum - Expectorated Sputum - Final Laboratory WBC 11.8 X10^3/uL (3.6-10.0) H 04/04/23 05:36 RBC 4.21 X10^6/uL (3.5-5.4) 04/04/23 05:36 Hgb 13.2 g/dL (12.0-16.0) 04/04/23 05:36 Hct 39.9 % (36.0-47.0) 04/04/23 05:36 MCV 95.0 fL (80.0-100.0) 04/04/23 05:36 MCH 31.3 pg (27.0-34.0) 04/04/23 05:36 MCHC 33.0 g/dL (33.0-35.0) 04/04/23 05:36 RDW 14.7 % (11.6-16.5) 04/04/23 05:36 Plt Count 229 X10^3/uL (150.0-450.0) 04/04/23 05:36 Plt Count Comment Adequate (ADEQUATE) 04/04/23 05:36 MPV 9.4 fL (7.4-11.0) 04/04/23 05:36 Neut % (Auto) 90.4 % (42.0-75.0) H 04/04/23 05:36 Lymph % (Auto) 5.3 % (21.0-51.0) L 04/04/23 05:36 [place] % (Auto) 4.0 % (0.0-13.0) 04/04/23 05:36 Eos % (Auto) 0.0 % (0.9-2.9) L 04/04/23 05:36 Baso % (Auto) 0.3 % (0.2-1.0) 04/04/23 05:36 Neut # (Auto) 10.7 x10^3/uL (2.2-4.8) H 04/04/23 05:36 Lymph # (Auto) 0.6 X10^3/uL (1.3-2.9) L 04/04/23 05:36 [place] # (Auto) 0.5 x10^3/uL (0.3-0.8) 04/04/23 05:36 Eos # (Auto) 0.0 x10^3/uL (0.0-0.2) 04/04/23 05:36 Baso # (Auto) 0.0 X10^3/uL (0.0-0.1) 04/04/23 05:36 Absolute Nucleated RBC 0.0 /100WBC 04/04/23 05:36 Total Counted 100 04/04/23 05:36 Neutrophils % (Manual) 89 % (39-76) H 04/04/23 05:36 Band Neutrophils % 3 % (0-10) 04/04/23 05:36 Lymphocytes % (Manual) 5 % (13-43) L 04/04/23 05:36 Monocytes % (Manual) 3 % (4-9) L 04/04/23 05:36 Plt Morphology Comment Normal (NORMAL) 04/04/23 05:36 RBC Morphology Normal (NORMAL) 04/04/23 05:36 Sample Site Rbra 04/02/23 10:55 ABG pH 7.370 (7.35-7.45) 04/02/23 10:55 ABG pCO2 42.0 mmHg (35.0-45.0) 04/02/23 10:55 ABG pO2 65.0 mmHg (80.0-100.0) L 04/02/23 10:55 ABG HCO3 24.3 mmol/L (22-26) 04/02/23 10:55 ABG O2 Saturation 92.0 % (90-100) 04/02/23 10:55 ABG Base Excess -1.0 mmol/L (-2.0-2.0) 04/02/23 10:55 Luis Alberto Test N/a 04/02/23 10:55 A-a Gradient 82.0 mmHg 04/02/23 10:55 FiO2 28.0 04/02/23 10:55 Blood Gas Comments Pt shmuel well elj 04/02/23 10:55 Sodium 130 mmol/L (136-145) L 04/04/23 05:36 Corrected Sodium 135 mmol/L (136-145) L 04/04/23 05:36 Potassium 4.6 mmol/L (3.5-5.1) 04/04/23 05:36 Chloride 96 mmol/L (98-107) L 04/04/23 05:36 Carbon Dioxide 25.2 mmol/L (21-32) 04/04/23 05:36 BUN 31 mg/dL (7-18) H 04/04/23 05:36 Creatinine 0.73 mg/dL (0.55-1.02) 04/04/23 05:36 Est GFR (MDRD) Af Amer > 60 (>60) 04/04/23 05:36 Est GFR (MDRD) Non-Af > 60 (>60) 04/04/23 05:36 Glucose 316 mg/dL (65-99) H 04/04/23 05:36 POC Glucose (mg/dL) 348 mg/dL (65-99) H 04/04/23 17:00 Calcium 8.2 mg/dL (8.5-10.1) L 04/04/23 05:36 Corrected Calcium 9.4 mg/dL (8.5-10.1) 04/04/23 05:36 Magnesium 2.1 mg/dL (2.0-2.9) 04/02/23 11:32 Total Bilirubin 0.50 mg/dL (0.2-1.0) 04/04/23 05:36 AST 9 Units/L (15-37) L 04/04/23 05:36 ALT < 6 Units/L (12-78) L 04/04/23 05:36 Alkaline Phosphatase 57 Units/L (46-116) 04/04/23 05:36 Creatine Kinase 10 Units/L (26-192) L 04/03/23 21:00 Troponin I High Sens 51.9 ng/L (4.0-60.0) 04/03/23 21:00 B-Natriuretic Peptide 396 pg/mL (0-79) H 04/02/23 11:32 Total Protein 6.9 g/dL (6.4-8.2) 04/04/23 05:36 Albumin 2.5 g/dL (3.4-5.0) L 04/04/23 05:36 Globulin 4.4 g/dL (2.5-4.5) 04/04/23 05:36 Albumin/Globulin Ratio 0.6 Ratio (1.1-2.1) L 04/04/23 05:36 Specimen Type Clean catch urine 04/02/23 10:53 Urine Color Pale yellow (YELLOW) 04/02/23 10:53 Urine Appearance Clear (CLEAR) 04/02/23 10:53 Urine pH 5.0 (5.0 - 8.0) 04/02/23 10:53 Ur Specific [place] 1.020 (1.000-1.030) 04/02/23 10:53 Urine Protein 1+ (NEGATIVE) 04/02/23 10:53 Urine Glucose (UA) 4+ (NEGATIVE) 04/02/23 10:53 Urine Ketones 3+ (NEGATIVE) 04/02/23 10:53 Urine Blood 2+ (NEGATIVE) 04/02/23 10:53 Urine Nitrite Negative (NEGATIVE) 04/02/23 10:53 Urine Bilirubin Negative (NEGATIVE) 04/02/23 10:53 Urine Urobilinogen Normal (NORMAL) 04/02/23 10:53 Ur Leukocyte Esterase Negative (NEGATIVE) 04/02/23 10:53 Urine RBC 0-2 /HPF (0-3) 04/02/23 10:53 Urine WBC 3-5 /HPF (0-5) 04/02/23 10:53 Ur Squamous Epith Cells Rare /HPF (NEGATIVE) 04/02/23 10:53 Urine Bacteria Trace /HPF (NEGATIVE) 04/02/23 10:53 Urine Mucus Rare /HPF (NEGATIVE) 04/02/23 10:53 Ur Culture Indicated? No/not indicated 04/02/23 10:53 Stl Occult Blood (IFOB) Negative (NEGATIVE) 04/02/23 11:42 Stl C. diff Tox B Gene Negative (NEGATIVE) 04/02/23 11:42 Stl C. diff 027-NAP1-BI Negative (NEGATIVE) 04/02/23 11:42 SARS-CoV-2 (PCR) Positive (NEGATIVE) A 04/02/23 11:17 Cryptosporid parvum Ag Negative (NEGATIVE) 04/02/23 11:42 Giardia lamblia Ag Negative (NEGATIVE) 04/02/23 11:42 Influenza Type A (PCR) Negative (NEGATIVE) 04/02/23 11:17 Influenza Type B (PCR) Negative (NEGATIVE) 04/02/23 11:17 RSV (PCR) Negative (NEGATIVE) 04/02/23 11:17 S. pyogenes (TEM-PCR) Not detected (NOT DETECT) 04/02/23 13:59 - Plan (1) COVID-19 Status: Acute Plan: NORMAL SALINE AT 75 ML/HR, REMDESIVIR 100MG IV DAILY, ROCEPHIN 1G IV DAILY, LOVENOX 40MG SC DAILY, SOLU-MEDROL 80MG IV Q8H, PROTONIX 40MG IV BID, XOPENEX NEB TX TID, HUMULIN R SLIDING SCLAE, AND HER HOME MEDICATONS WERE RESUMED. (2) Acute bronchitis Status: Acute Qualifiers: Bronchitis organism: unspecified organism Qualified Code(s): J20.9 - Acute bronchitis, unspecified (3) Hypoxia Status: Acute (4) Abnormal cardiac enzyme level Status: Acute (5) Dehydration Status: Acute (6) Diabetes mellitus Status: Chronic Qualifiers: Diabetes mellitus type: type 2 Diabetes mellitus longterm insulin use: with terminal worker use Diabetes mellitus complication status: with hyperglycemia Qualified Code(s): E11.65 - Type 2 diabetes mellitus with hyperglycemia; Z79.4 - MCC (current) use of insulin (7) HTN (hypertension) Status: Chronic Qualifiers: Hypertension type: primary hypertension Qualified Code(s): I10 - Essential (primary) hypertension
[2023-04-04] MEDS: SEROquel TAB 25 mg PO SCH (21:52)
[2023-04-04] MEDS: SNACK - Diabetic Appropriate PO SCH ×2 (21:53)
[2023-04-05] MEDS: SOLU-Medrol 40 MG VIAL IVP SCH ×3 (05:41→21:15)
[2023-04-05] MEDS: NovoLIN R (or HumuLIN R) SUBCUT PRN ×4 (05:45→20:43)
[2023-04-05 06:25] LABS: BASOPHILS % (AUTO) 0.1 % (0.2-1.0); HEMATOCRIT 40.1 % (36.0-47.0); HEMOGLOBIN 13.4 g/dL (12.0-16.0); LYMPHOCYTES # (AUTO) 0.4 X10^3/uL (1.3-2.9); MEAN CORPUSCULAR HEMOGLOBIN 31.7 pg (27.0-34.0); MEAN CORPUSCULAR HGB CONC 33.3 g/dL (33.0-35.0); MEAN CORPUSCULAR VOLUME 95.2 fL (80.0-100.0); MEAN PLATELET VOLUME 9.5 fL (7.4-11.0); MONOCYTES # (AUTO) 0.3 x10^3/uL (0.3-0.8); MONOCYTES % (AUTO) 3.8 % (0.0-13.0); NEUTROPHILS # (AUTO) 7.8 x10^3/uL (2.2-4.8); NEUTROPHILS % (AUTO) 91.1 % (42.0-75.0); PLATELET COUNT 194 X10^3/uL (150.0-450.0); RED BLOOD COUNT 4.22 X10^6/uL (3.5-5.4); RED CELL DISTRIBUTION WIDTH 14.6 % (11.6-16.5); WHITE BLOOD COUNT 8.6 X10^3/uL (3.6-10.0)
[2023-04-05 06:39] LABS: ALANINE AMINOTRANSFERASE 7 Units/L (12-78); ALBUMIN 2.4 g/dL (3.4-5.0); ALKALINE PHOSPHATASE 50 Units/L (46-116); ASPARTATE AMINO TRANSFERASE 14 Units/L (15-37); BLOOD UREA NITROGEN 28 mg/dL (7-18); CALCIUM 8.3 mg/dL (8.5-10.1); CHLORIDE 100 mmol/L (98-107); COR CA(FOR HYPOALB) 9.6 mg/dL (8.5-10.1); COR NA(FOR HYPERGLY) 139 mmol/L (136-145); CREATININE 0.65 mg/dL (0.55-1.02); GLUCOSE 344 mg/dL (65-99); POTASSIUM 4.6 mmol/L (3.5-5.1); SODIUM 133 mmol/L (136-145); TOTAL PROTEIN 6.5 g/dL (6.4-8.2); eGFR NON BLACK RACES > 60 (>60)
[2023-04-05 07:05] LABS: BAND NEUTROPHILS % 2 % (0-10); METAMYELOCYTES % 1; PLATELET MORPHOLOGY COMMENT NORMAL (NORMAL)
--- NOTE | 2023-04-05 08:13 | RAD ---
EXAM:Portable chestHISTORY:COVID, shortness of breathCOMPARISON:04/04/2023FINDINGS:Hear t remains mildly enlarged. Criselda are normal. No congestive heart failure is identified. No acute alveolar infiltrates or pleural effusions are identified. Bony thorax is unremarkable.IMPRESSION:Mild cardiomegaly without congestive heart failureNo definite acute infiltratesTHIS IS AN ELECTRONICALLY VERIFIED FINAL [id number]/05/2023 8:10 AM - Electronically signed by Sung Oakley MD
[2023-04-05] MEDS: FARXIGA PO SCH (08:52)
[2023-04-05] MEDS: JANUVIA PO SCH (08:53)
[2023-04-05] MEDS: COZAAR PO SCH (08:53)
[2023-04-05] MEDS: NEURONTIN TAB 600 MG PO SCH ×4 (08:54→20:09)
[2023-04-05] MEDS: PROTONIX INJ 40 MG VIAL IVP SCH ×2 (08:55→20:10)
[2023-04-05] MEDS: REMDESIVIR 100 MG in NS 250 ML IV 250 ML IV SCH (08:56)
[2023-04-05] MEDS: XOPENEX 1.25 MG/3 ML NEBULE NEB SCH ×2 (09:06→21:00)
[2023-04-05] MEDS: LOVENOX INJ 40 MG SYR SC SCH (10:28)
[2023-04-05] MEDS: NS 1,000 ML IV 1,000 ML IV SCH ×2 (10:29→23:39)
[2023-04-05] MEDS: ROCEPHIN VIAL 1 GRAM 1 G in NS 100 ML IV 100 ML IV SCH (10:41)
[2023-04-05] MEDS: SEROquel TAB 25 mg PO SCH (20:09)
[2023-04-05] MEDS: SNACK - Diabetic Appropriate PO SCH (20:16)
[2023-04-06 05:07] LABS: BASOPHILS % (AUTO) 0.1 % (0.2-1.0); HEMATOCRIT 40.1 % (36.0-47.0); HEMOGLOBIN 13.3 g/dL (12.0-16.0); LYMPHOCYTES # (AUTO) 0.3 X10^3/uL (1.3-2.9); LYMPHOCYTES % (AUTO) 5.1 % (21.0-51.0); MEAN CORPUSCULAR HEMOGLOBIN 31.5 pg (27.0-34.0); MEAN CORPUSCULAR HGB CONC 33.2 g/dL (33.0-35.0); MEAN CORPUSCULAR VOLUME 94.8 fL (80.0-100.0); MEAN PLATELET VOLUME 9.6 fL (7.4-11.0); MONOCYTES # (AUTO) 0.3 x10^3/uL (0.3-0.8); MONOCYTES % (AUTO) 4.9 % (0.0-13.0); NEUTROPHILS # (AUTO) 5.8 x10^3/uL (2.2-4.8); NEUTROPHILS % (AUTO) 89.9 % (42.0-75.0); PLATELET COUNT 192 X10^3/uL (150.0-450.0); RED BLOOD COUNT 4.23 X10^6/uL (3.5-5.4); RED CELL DISTRIBUTION WIDTH 14.4 % (11.6-16.5); WHITE BLOOD COUNT 6.5 X10^3/uL (3.6-10.0)
[2023-04-06 05:20] LABS: ALANINE AMINOTRANSFERASE 22 Units/L (12-78); ALBUMIN 2.3 g/dL (3.4-5.0); ALKALINE PHOSPHATASE 44 Units/L (46-116); ASPARTATE AMINO TRANSFERASE 23 Units/L (15-37); BLOOD UREA NITROGEN 23 mg/dL (7-18); CALCIUM 8.4 mg/dL (8.5-10.1); CARBON DIOXIDE 27.6 mmol/L (21-32); CHLORIDE 100 mmol/L (98-107); COR CA(FOR HYPOALB) 9.8 mg/dL (8.5-10.1); COR NA(FOR HYPERGLY) 139 mmol/L (136-145); CREATININE 0.59 mg/dL (0.55-1.02); GLUCOSE 286 mg/dL (65-99); POTASSIUM 4.2 mmol/L (3.5-5.1); SODIUM 135 mmol/L (136-145); eGFR NON BLACK RACES > 60 (>60)
[2023-04-06] MEDS: SOLU-Medrol 40 MG VIAL IVP SCH ×3 (05:21→21:08)
[2023-04-06] MEDS: NovoLIN R (or HumuLIN R) SUBCUT PRN ×4 (06:02→22:07)
--- NOTE | 2023-04-06 06:18 | RAD ---
EXAM:Portable AP chest, uprightHISTORY:COVID hypoxiaCOMPARISON:April 05, 2023FINDINGS:Stable heart size with degenerative calcification mitral annulus. There is no evidence for pulmonary edema, pneumonia or pleural fluid. The central pulmonary vasculature is mildly congested on this upright exam.IMPRESSION:Mild pulmonary vascular congestion. No change otherwise since 1 day earlier.THIS IS AN ELECTRONICALLY VERIFIED FINAL [id number]/06/2023 6:15 AM - Electronically signed by Albert Godwin MD
[2023-04-06] MEDS: XOPENEX 1.25 MG/3 ML NEBULE NEB SCH ×2 (08:23→20:30)
[2023-04-06] MEDS: ROCEPHIN VIAL 1 GRAM 1 G in NS 100 ML IV 100 ML IV SCH (08:44)
[2023-04-06] MEDS: PROTONIX INJ 40 MG VIAL IVP SCH ×2 (08:46→21:36)
[2023-04-06] MEDS: FARXIGA PO SCH (08:47)
[2023-04-06] MEDS: COZAAR PO SCH (08:47)
[2023-04-06] MEDS: JANUVIA PO SCH (08:47)
[2023-04-06] MEDS: LOVENOX INJ 40 MG SYR SC SCH (08:47)
[2023-04-06] MEDS: NEURONTIN TAB 600 MG PO SCH ×4 (08:47→21:07)
[2023-04-06] MEDS: REMDESIVIR 100 MG in NS 250 ML IV 250 ML IV SCH (09:30)
[2023-04-06] MEDS: NS 1,000 ML IV 1,000 ML IV SCH ×2 (10:33→21:18)
[2023-04-06] MEDS: TYLENOL 325 MG TAB PO PRN (10:47)
[2023-04-06] MEDS: SNACK - Diabetic Appropriate PO SCH ×2 (20:55→21:21)
[2023-04-06] MEDS: SEROquel TAB 25 mg PO SCH (21:08)
[2023-04-07] MEDS: SOLU-Medrol 40 MG VIAL IVP SCH ×4 (05:16→21:04)
[2023-04-07 05:19] LABS: BASOPHILS % (AUTO) 0.1 % (0.2-1.0); HEMATOCRIT 38.6 % (36.0-47.0); HEMOGLOBIN 13.1 g/dL (12.0-16.0); LYMPHOCYTES # (AUTO) 0.3 X10^3/uL (1.3-2.9); LYMPHOCYTES % (AUTO) 4.1 % (21.0-51.0); MEAN CORPUSCULAR HEMOGLOBIN 31.7 pg (27.0-34.0); MEAN CORPUSCULAR HGB CONC 33.9 g/dL (33.0-35.0); MEAN CORPUSCULAR VOLUME 93.5 fL (80.0-100.0); MEAN PLATELET VOLUME 9.9 fL (7.4-11.0); MONOCYTES # (AUTO) 0.5 x10^3/uL (0.3-0.8); MONOCYTES % (AUTO) 5.7 % (0.0-13.0); NEUTROPHILS # (AUTO) 7.3 x10^3/uL (2.2-4.8); NEUTROPHILS % (AUTO) 90.1 % (42.0-75.0); PLATELET COUNT 183 X10^3/uL (150.0-450.0); RED BLOOD COUNT 4.13 X10^6/uL (3.5-5.4); RED CELL DISTRIBUTION WIDTH 14.5 % (11.6-16.5); WHITE BLOOD COUNT 8.1 X10^3/uL (3.6-10.0)
[2023-04-07 05:38] LABS: ALANINE AMINOTRANSFERASE 25 Units/L (12-78); ALBUMIN 2.3 g/dL (3.4-5.0); ALKALINE PHOSPHATASE 44 Units/L (46-116); ASPARTATE AMINO TRANSFERASE 18 Units/L (15-37); BLOOD UREA NITROGEN 22 mg/dL (7-18); CALCIUM 8.1 mg/dL (8.5-10.1); CARBON DIOXIDE 27.8 mmol/L (21-32); CHLORIDE 99 mmol/L (98-107); COR CA(FOR HYPOALB) 9.5 mg/dL (8.5-10.1); COR NA(FOR HYPERGLY) 137 mmol/L (136-145); CREATININE 0.64 mg/dL (0.55-1.02); GLUCOSE 253 mg/dL (65-99); SODIUM 133 mmol/L (136-145); TOTAL PROTEIN 5.7 g/dL (6.4-8.2); eGFR NON BLACK RACES > 60 (>60)
[2023-04-07 06:02] LABS: BAND NEUTROPHILS % 1 % (0-10); METAMYELOCYTES % 1; PLATELET MORPHOLOGY COMMENT NORMAL (NORMAL)
[2023-04-07] MEDS: NovoLIN R (or HumuLIN R) SUBCUT PRN ×4 (06:15→20:59)
--- NOTE | 2023-04-07 07:03 | RAD ---
EXAM:Portable AP chestHISTORY:Dyspnea COVIDCOMPARISON:April 06, 2023FINDINGS:Heart size remains normal with degenerative calcification of mitral annulus. There is no evidence for developing infiltrate, edema, atelectasis or pleural fluid.IMPRESSION:No acute chest findings.THIS IS AN ELECTRONICALLY VERIFIED FINAL [id number]/07/2023 7:00 AM - Electronically signed by Albert Godwin MD
[2023-04-07] MEDS: COZAAR PO SCH (08:49)
[2023-04-07] MEDS: FARXIGA PO SCH (08:49)
[2023-04-07] MEDS: JANUVIA PO SCH (08:49)
[2023-04-07] MEDS: NEURONTIN TAB 600 MG PO SCH ×4 (08:49→20:27)
[2023-04-07] MEDS: PROTONIX INJ 40 MG VIAL IVP SCH ×2 (08:50→20:27)
[2023-04-07] MEDS: LOVENOX INJ 40 MG SYR SC SCH (08:50)
[2023-04-07] MEDS: ROCEPHIN VIAL 1 GRAM 1 G in NS 100 ML IV 100 ML IV SCH (08:50)
[2023-04-07] MEDS: XOPENEX 1.25 MG/3 ML NEBULE NEB SCH ×2 (08:54→20:10)
[2023-04-07] MEDS: REMDESIVIR 100 MG in NS 250 ML IV 250 ML IV SCH (09:37)
[2023-04-07] MEDS: NS 1,000 ML IV 1,000 ML IV SCH (16:10)
--- NOTE | 2023-04-07 18:21 | PCM.PROG ---
Progress Note - Progress Note for Day of Date of Exam: 04/05/23 - Subjective Subjective: IS A 87 YEAR OLD PATIENT OF OURS. SHE IS CURRENTLY INPATIENT STATUS FOR TREATMENT OF COVID-19, HYPOXIA, DEHYDRATION, AND ABNORMAL CARDIAC ENZYMES. SHE HAS A PMH OF DM II, HTN, OVERACTIVE BLADDER, AND CHRONIC PAIN. SHE DENIES HX OF CAD. ACCORDING TO PATIENT, HER SX OF COUGH, SOB, AND CONGESTION STARTED TWO DAYS PRIOR TO ADMISSION. SHE WAS HYPOXIC WITH OXYGEN SATURATIONS IN THE UPPER 70s UPON EMS ARRIVAL. TODAY, SHE IS ALERT AND ORIENTED, LYING IN BED ON MORNING ROUNDS. SHE COMPLAINS OF PERSISTENT GENERALIZED WEAKNESS THIS MORNING. SHE DID ADMIT TO SOME IMPROVEMENT IN SHORTNES S OF BREATH AND NAUSEA THIS MORNING. ON EXAMINATION, HEART IS REGULAR IN RATE AND RHYTHM. BILATERAL LUNGS ARE NOTED WITH DIMINISHED LUNG SOUNDS THROUGHOUT. ABDOMEN IS ROUND, SOFT, AND NON-TENDER WITH NORMAL BOWEL SOUNDS NOTED IN ALL QUADRANTS. WEAKNESS OF LOWER EXTREMITIES NOTED, BUT NO EDEMA IS PRESENT. HER VITALS THIS MORNING ARE: 98.5-60-20-98%-155/72. LABS WERE OBTAINED. WBC 8.6, RBC 4.22, HGB 13.4, HCT 40.1, PLT COUNT 194, SODIUM 133, POTASSIUM 4.6, CHLORIDE 100, CARBON DIOXIDE 25.0, BUN 28, CREATININE 0.65, GLUCOSE 344, CALCIUM 8.3, TOTAL BILI 0.40, AST 14, ALT 7, ALK PHOS 50, CRP 38.60, TOTAL PROTEIN 6.5, ALBUMIN 2.4. STOOL STUDIES WERE NEGATIVE. SPUTUM CULTURE WAS SET UP. A CHEST XRA Y WAS OBTAINED AND REVEALED: Mild cardiomegaly without congestive heart failure. No definite acute infiltrates. SHE IS CURRENTLY RECEVING NORMAL SALINE AT 75 ML/HR, REMDESIVIR 100MG IV DAILY, ROCEPHIN 1G IV DAILY, LOVENOX 40MG SC DAILY, SOLU-MEDROL 80MG IV Q8H, PROTONIX 40MG IV BID, XOPENEX NEB TX BID, HUMULIN R SLIDING SCLAE, AND HER HOME MEDICATONS WERE RESUMED. PHYSICAL THERAPY EVALUATED PATIENT TODAY. PATIENT REQUIRED MODERATE ASSISTANCE FOR AMBULATION AND ADLs. PT RECOMMENDS CONTINUED THERAPY AT A INTERMEDIATE FACILITY. WE ARE IN AGREEMENT AND WILL DISCUSS SWINGBED WITH PATIENT AND CASE MANAGEMENT. OTHERWISE, WE WILL FOLLOW-UP WITH AM LABS AND CONTINUE TO MONITOR. TIME SPENT ON CLINICAL ASSESSMENT, REVIEWING LABS AND IMAGING, DECISION MAKING, AND DOCUMENTATION GREATER THAN 45 MINUTES. - Past Medical Family Social History Past Med/Fam/Surg Hx: No changes since H&P Allergies: Allergies codeine Allergy (Verified 04/02/23 10:53) - Review of Systems ROS: No change since H&P - Vital Signs and I&O's Vital Signs: Vital Signs Temperature 98.3 F Temperature 98.1 F Pulse Rate [Brachial] 81 Pulse Rate [Brachial] 96 Respiratory Rate 20 Respiratory Rate 20 Blood Pressure [Right Arm] 174/84 Blood Pressure [Right Arm] 162/70 O2 Sat by Pulse Oximetry 94 O2 Sat by Pulse Oximetry 91 Intake and Output: Intake & Output 04/05/23 04/06/23 04/07/23 04/08/23 11:59 11:59 11:59 11:59 Intake Total 1440 / 1440 1743 / 1743 3772 / 3772 600 / 600 Output Total 1425 / 1425 3200 / 3200 3000 / 3000 1300 / 1300 Balance 15 / 15 -1457 / -1457 772 / 772 -700 / -700 - Physical Exam Oriented: Normal Eyes: Normal Ear: Normal Nose: Normal Throat: Dry Respiratory: Generalized, Diminished Cardiovascular: Normal : Normal Auscultation: Bowel Sounds: Normal Palpation: Normal Tenderness: Normal Skin: Normal Musculoskeletal: Motor Deficit Psychiatric: Normal Mood Description: Calm Speech Pattern: Appropriate, Delayed - Laboratory and Diagnostics Result Diagrams: 04/07/23 04:20 04/07/23 04:20 Labs: 04/02/23 11:42 Stool Stool Culture - Final 04/02/23 11:42 Stool - Final 04/02/23 21:10 Sputum - Expectorated Sputum Sputum Culture - Final 04/02/23 21:10 Sputum - Expectorated Sputum - Final Laboratory WBC 8.1 X10^3/uL (3.6-10.0) 04/07/23 04:20 RBC 4.13 X10^6/uL (3.5-5.4) 04/07/23 04:20 Hgb 13.1 g/dL (12.0-16.0) 04/07/23 04:20 Hct 38.6 % (36.0-47.0) 04/07/23 04:20 MCV 93.5 fL (80.0-100.0) 04/07/23 04:20 MCH 31.7 pg (27.0-34.0) 04/07/23 04:20 MCHC 33.9 g/dL (33.0-35.0) 04/07/23 04:20 RDW 14.5 % (11.6-16.5) 04/07/23 04:20 Plt Count 183 X10^3/uL (150.0-450.0) 04/07/23 04:20 Plt Count Comment Adequate (ADEQUATE) 04/07/23 04:20 MPV 9.9 fL (7.4-11.0) 04/07/23 04:20 Neut % (Auto) 90.1 % (42.0-75.0) H 04/07/23 04:20 Lymph % (Auto) 4.1 % (21.0-51.0) L 04/07/23 04:20 [place] % (Auto) 5.7 % (0.0-13.0) 04/07/23 04:20 Eos % (Auto) 0.0 % (0.9-2.9) L 04/07/23 04:20 Baso % (Auto) 0.1 % (0.2-1.0) L 04/07/23 04:20 Neut # (Auto) 7.3 x10^3/uL (2.2-4.8) H 04/07/23 04:20 Lymph # (Auto) 0.3 X10^3/uL (1.3-2.9) L 04/07/23 04:20 [place] # (Auto) 0.5 x10^3/uL (0.3-0.8) 04/07/23 04:20 Eos # (Auto) 0.0 x10^3/uL (0.0-0.2) 04/07/23 04:20 Baso # (Auto) 0.0 X10^3/uL (0.0-0.1) 04/07/23 04:20 Absolute Nucleated RBC 0.3 /100WBC 04/07/23 04:20 Total Counted 100 04/07/23 04:20 Neutrophils % (Manual) 90 % (39-76) H 04/07/23 04:20 Band Neutrophils % 1 % (0-10) 04/07/23 04:20 Lymphocytes % (Manual) 3 % (13-43) L 04/07/23 04:20 Monocytes % (Manual) 5 % (4-9) 04/07/23 04:20 Metamyelocytes % 1 04/07/23 04:20 Plt Morphology Comment Normal (NORMAL) 04/07/23 04:20 RBC Morphology Normal (NORMAL) 04/07/23 04:20 Sample Site [facility] 04/02/23 10:55 ABG pH 7.370 (7.35-7.45) 04/02/23 10:55 ABG pCO2 42.0 mmHg (35.0-45.0) 04/02/23 10:55 ABG pO2 65.0 mmHg (80.0-100.0) L 04/02/23 10:55 ABG HCO3 24.3 mmol/L (22-26) 04/02/23 10:55 ABG O2 Saturation 92.0 % (90-100) 04/02/23 10:55 ABG Base Excess -1.0 mmol/L (-2.0-2.0) 04/02/23 10:55 Luis Alberto Test N/a 04/02/23 10:55 A-a Gradient 82.0 mmHg 04/02/23 10:55 FiO2 28.0 04/02/23 10:55 Blood Gas Comments Pt shmuel well elj 04/02/23 10:55 Sodium 133 mmol/L (136-145) L 04/07/23 04:20 Corrected Sodium 137 mmol/L (136-145) 04/07/23 04:20 Potassium 4.0 mmol/L (3.5-5.1) 04/07/23 04:20 Chloride 99 mmol/L (98-107) 04/07/23 04:20 Carbon Dioxide 27.8 mmol/L (21-32) 04/07/23 04:20 BUN 22 mg/dL (7-18) H 04/07/23 04:20 Creatinine 0.64 mg/dL (0.55-1.02) 04/07/23 04:20 Est GFR (MDRD) Af Amer > 60 (>60) 04/07/23 04:20 Est GFR (MDRD) Non-Af > 60 (>60) 04/07/23 04:20 Glucose 253 mg/dL (65-99) H 04/07/23 04:20 POC Glucose (mg/dL) 247 mg/dL (65-99) H 04/07/23 16:16 Calcium 8.1 mg/dL (8.5-10.1) L 04/07/23 04:20 Corrected Calcium 9.5 mg/dL (8.5-10.1) 04/07/23 04:20 Magnesium 2.1 mg/dL (2.0-2.9) 04/02/23 11:32 Total Bilirubin 0.60 mg/dL (0.2-1.0) 04/07/23 04:20 AST 18 Units/L (15-37) 04/07/23 04:20 ALT 25 Units/L (12-78) 04/07/23 04:20 Alkaline Phosphatase 44 Units/L (46-116) L 04/07/23 04:20 Creatine Kinase 10 Units/L (26-192) L 04/03/23 21:00 Troponin I High Sens 51.9 ng/L (4.0-60.0) 04/03/23 21:00 C-Reactive Protein 14.60 mg/L (0-3.0) H 04/07/23 04:20 B-Natriuretic Peptide 396 pg/mL (0-79) H 04/02/23 11:32 Total Protein 5.7 g/dL (6.4-8.2) L 04/07/23 04:20 Albumin 2.3 g/dL (3.4-5.0) L 04/07/23 04:20 Globulin 3.4 g/dL (2.5-4.5) 04/07/23 04:20 Albumin/Globulin Ratio 0.7 Ratio (1.1-2.1) L 04/07/23 04:20 Specimen Type Clean catch urine 04/02/23 10:53 Urine Color Pale yellow (YELLOW) 04/02/23 10:53 Urine Appearance Clear (CLEAR) 04/02/23 10:53 Urine pH 5.0 (5.0 - 8.0) 04/02/23 10:53 Ur Specific [place] 1.020 (1.000-1.030) 04/02/23 10:53 Urine Protein 1+ (NEGATIVE) 04/02/23 10:53 Urine Glucose (UA) 4+ (NEGATIVE) 04/02/23 10:53 Urine Ketones 3+ (NEGATIVE) 04/02/23 10:53 Urine Blood 2+ (NEGATIVE) 04/02/23 10:53 Urine Nitrite Negative (NEGATIVE) 04/02/23 10:53 Urine Bilirubin Negative (NEGATIVE) 04/02/23 10:53 Urine Urobilinogen Normal (NORMAL) 04/02/23 10:53 Ur Leukocyte Esterase Negative (NEGATIVE) 04/02/23 10:53 Urine RBC 0-2 /HPF (0-3) 04/02/23 10:53 Urine WBC 3-5 /HPF (0-5) 04/02/23 10:53 Ur Squamous Epith Cells Rare /HPF (NEGATIVE) 04/02/23 10:53 Urine Bacteria Trace /HPF (NEGATIVE) 04/02/23 10:53 Urine Mucus Rare /HPF (NEGATIVE) 04/02/23 10:53 Ur Culture Indicated? No/not indicated 04/02/23 10:53 Stl Occult Blood (IFOB) Negative (NEGATIVE) 04/02/23 11:42 Stl C. diff Tox B Gene Negative (NEGATIVE) 04/02/23 11:42 Stl C. diff 027-NAP1-BI Negative (NEGATIVE) 04/02/23 11:42 SARS-CoV-2 (PCR) Positive (NEGATIVE) A 04/02/23 11:17 Cryptosporid parvum Ag Negative (NEGATIVE) 04/02/23 11:42 Giardia lamblia Ag Negative (NEGATIVE) 04/02/23 11:42 Influenza Type A (PCR) Negative (NEGATIVE) 04/02/23 11:17 Influenza Type B (PCR) Negative (NEGATIVE) 04/02/23 11:17 RSV (PCR) Negative (NEGATIVE) 04/02/23 11:17 S. pyogenes (TEM-PCR) Not detected (NOT DETECT) 04/02/23 13:59 - Plan (1) COVID-19 Status: Acute Plan: NORMAL SALINE AT 75 ML/HR, REMDESIVIR 100MG IV DAILY, ROCEPHIN 1G IV DAILY, LOVENOX 40MG SC DAILY, SOLU-MEDROL 80MG IV Q8H, PROTONIX 40MG IV BID, XOPENEX NEB TX TID, HUMULIN R SLIDING SCLAE, AND HER HOME MEDICATONS WERE RESUMED. (2) Acute bronchitis Status: Acute Qualifiers: Bronchitis organism: unspecified organism Qualified Code(s): J20.9 - Acute bronchitis, unspecified (3) Hypoxia Status: Acute (4) Abnormal cardiac enzyme level Status: Acute (5) Dehydration Status: Acute (6) Generalized weakness Status: Acute Plan: PT/OT (7) Diabetes mellitus Status: Chronic Qualifiers: Diabetes mellitus type: type 2 Diabetes mellitus prison insulin use: with prison use Diabetes mellitus complication status: with hyperglycemia Qualified Code(s): E11.65 - Type 2 diabetes mellitus with hyperglycemia; Z79.4 - detention (current) use of insulin (8) HTN (hypertension) Status: Chronic Qualifiers: Hypertension type: primary hypertension Qualified Code(s): I10 - Essential (primary) hypertension
--- NOTE | 2023-04-07 19:33 | PCM.PROG ---
Progress Note - Progress Note for Day of Date of Exam: 04/06/23 - Subjective Subjective: IS A 87 YEAR OLD PATIENT OF OURS. SHE IS CURRENTLY INPATIENT STATUS FOR TREATMENT OF COVID-19, HYPOXIA, DEHYDRATION, AND ABNORMAL CARDIAC ENZYMES. SHE HAS A PMH OF DM II, HTN, OVERACTIVE BLADDER, AND CHRONIC PAIN. SHE DENIES HX OF CAD. ACCORDING TO PATIENT, HER SX OF COUGH, SOB, AND CONGESTION STARTED TWO DAYS PRIOR TO ADMISSION. SHE WAS HYPOXIC WITH OXYGEN SATURATIONS IN THE UPPER 70s UPON EMS ARRIVAL. TODAY, SHE IS ALERT AND ORIENTED, LYING IN BED ON MORNING ROUNDS. SHE COMPLAINS OF PERSISTENT GENERALIZED WEAKNESS THIS MORNING. SHE DID ADMIT TO SOME IMPROVEMENT IN SHORTNES S OF BREATH AND NAUSEA THIS MORNING. ON EXAMINATION, HEART IS REGULAR IN RATE AND RHYTHM. BILATERAL LUNGS ARE NOTED WITH DIMINISHED LUNG SOUNDS THROUGHOUT. ABDOMEN IS ROUND, SOFT, AND NON-TENDER WITH NORMAL BOWEL SOUNDS NOTED IN ALL QUADRANTS. WEAKNESS OF LOWER EXTREMITIES NOTED, BUT NO EDEMA IS PRESENT. HER VITALS THIS MORNING ARE: 97.9-62-18-97%-149/67. SHE IS CURRENTLY UTILIZING OXYGEN VIA NASAL CANNULA AT 3 LPM. LABS WERE OBTAINED. WBC 6.5, RBC 4.23, HGB 13.3, HCT 40.1, PLT COUNT 192, SODIUM 135, POTASSIUM 4.2, CHLORIDE 100, CARBON DIOXIDE 27.6, BUN 23, CREATININE 0.59, GLUCOSE 286, CALCIUM 8.4, TOTAL BILI 0.50, AST 23, ALT 22, ALK PHOS 44, CRP 20.50, TOTAL PROTEIN 6.0, ALBUMIN 2.3. A CHEST XRAY WAS OBTAINED THIS MORNING AND REVEALED: Mild pulmonary vascular congestion. No change otherwise since 1 day earlier. SHE IS CURRENTLY RECEVING NORMAL SALINE AT 75 ML/HR, REMDESIVIR 100MG IV DAILY, ROCEPHIN 1G IV DAILY, LOVENOX 40MG SC DAILY, SOLU-MEDROL 80MG IV Q8H, PROTONIX 40MG IV BID, XOPENEX NEB TX BID, HUMULIN R SLIDING SCLAE, AND HER HOME MEDICATONS WERE RESUMED. PHYSICAL THERAPY RECOMMENDS CONTINUED THERAPY AT A LONG-TERM FACILITY. PATIENT AND HER FAMILY ARE AGREEABLE TO SWINGBED STAY FOR PHYSICAL THERAPY AND REHAB. WE WILL CONTINUE WITH CURRENT PLAN OF CARE TODAY. OTHERWISE, WE WILL FOLLOW-UP WITH AM LABS AND CONTINUE TO MONITOR. TIME SPENT ON CLINICAL ASSESSMENT, REVIEWING LABS AND IMAGING, DECISION MAKING, AND DOCUMENTATION GREATER THAN 45 MINUTES. - Past Medical Family Social History Past Med/Fam/Surg Hx: No changes since H&P Allergies: Allergies codeine Allergy (Verified 04/02/23 10:53) - Review of Systems ROS: No change since H&P - Vital Signs and I&O's Vital Signs: Vital Signs Temperature 98.3 F Temperature 98.1 F Pulse Rate [Brachial] 81 Pulse Rate [Brachial] 96 Respiratory Rate 20 Respiratory Rate 20 Blood Pressure [Right Arm] 174/84 Blood Pressure [Right Arm] 162/70 O2 Sat by Pulse Oximetry 94 O2 Sat by Pulse Oximetry 91 Intake and Output: Intake & Output 04/05/23 04/06/23 04/07/23 04/08/23 11:59 11:59 11:59 11:59 Intake Total 1440 / 1440 1743 / 1743 3772 / 3772 600 / 600 Output Total 1425 / 1425 3200 / 3200 3000 / 3000 1300 / 1300 Balance 15 / 15 -1457 / -1457 772 / 772 -700 / -700 - Physical Exam Oriented: Normal Eyes: Normal Ear: Normal Nose: Normal Throat: Dry Respiratory: Generalized, Diminished Cardiovascular: Normal : Normal Auscultation: Bowel Sounds: Normal Palpation: Normal Tenderness: Normal Skin: Normal Musculoskeletal: Motor Deficit Psychiatric: Normal Mood Description: Calm Speech Pattern: Appropriate, Delayed - Laboratory and Diagnostics Result Diagrams: 04/07/23 04:20 04/07/23 04:20 Labs: 04/02/23 11:42 Stool Stool Culture - Final 04/02/23 11:42 Stool - Final 04/02/23 21:10 Sputum - Expectorated Sputum Sputum Culture - Final 04/02/23 21:10 Sputum - Expectorated Sputum - Final Laboratory WBC 8.1 X10^3/uL (3.6-10.0) 04/07/23 04:20 RBC 4.13 X10^6/uL (3.5-5.4) 04/07/23 04:20 Hgb 13.1 g/dL (12.0-16.0) 04/07/23 04:20 Hct 38.6 % (36.0-47.0) 04/07/23 04:20 MCV 93.5 fL (80.0-100.0) 04/07/23 04:20 MCH 31.7 pg (27.0-34.0) 04/07/23 04:20 MCHC 33.9 g/dL (33.0-35.0) 04/07/23 04:20 RDW 14.5 % (11.6-16.5) 04/07/23 04:20 Plt Count 183 X10^3/uL (150.0-450.0) 04/07/23 04:20 Plt Count Comment Adequate (ADEQUATE) 04/07/23 04:20 MPV 9.9 fL (7.4-11.0) 04/07/23 04:20 Neut % (Auto) 90.1 % (42.0-75.0) H 04/07/23 04:20 Lymph % (Auto) 4.1 % (21.0-51.0) L 04/07/23 04:20 [place] % (Auto) 5.7 % (0.0-13.0) 04/07/23 04:20 Eos % (Auto) 0.0 % (0.9-2.9) L 04/07/23 04:20 Baso % (Auto) 0.1 % (0.2-1.0) L 04/07/23 04:20 Neut # (Auto) 7.3 x10^3/uL (2.2-4.8) H 04/07/23 04:20 Lymph # (Auto) 0.3 X10^3/uL (1.3-2.9) L 04/07/23 04:20 [place] # (Auto) 0.5 x10^3/uL (0.3-0.8) 04/07/23 04:20 Eos # (Auto) 0.0 x10^3/uL (0.0-0.2) 04/07/23 04:20 Baso # (Auto) 0.0 X10^3/uL (0.0-0.1) 04/07/23 04:20 Absolute Nucleated RBC 0.3 /100WBC 04/07/23 04:20 Total Counted 100 04/07/23 04:20 Neutrophils % (Manual) 90 % (39-76) H 04/07/23 04:20 Band Neutrophils % 1 % (0-10) 04/07/23 04:20 Lymphocytes % (Manual) 3 % (13-43) L 04/07/23 04:20 Monocytes % (Manual) 5 % (4-9) 04/07/23 04:20 Metamyelocytes % 1 04/07/23 04:20 Plt Morphology Comment Normal (NORMAL) 04/07/23 04:20 RBC Morphology Normal (NORMAL) 04/07/23 04:20 Sample Site Rb 04/02/23 10:55 ABG pH 7.370 (7.35-7.45) 04/02/23 10:55 ABG pCO2 42.0 mmHg (35.0-45.0) 04/02/23 10:55 ABG pO2 65.0 mmHg (80.0-100.0) L 04/02/23 10:55 ABG HCO3 24.3 mmol/L (22-26) 04/02/23 10:55 ABG O2 Saturation 92.0 % (90-100) 04/02/23 10:55 ABG Base Excess -1.0 mmol/L (-2.0-2.0) 04/02/23 10:55 Luis Alberto Test N/a 04/02/23 10:55 A-a Gradient 82.0 mmHg 04/02/23 10:55 FiO2 28.0 04/02/23 10:55 Blood Gas Comments Pt shmuel well elj 04/02/23 10:55 Sodium 133 mmol/L (136-145) L 04/07/23 04:20 Corrected Sodium 137 mmol/L (136-145) 04/07/23 04:20 Potassium 4.0 mmol/L (3.5-5.1) 04/07/23 04:20 Chloride 99 mmol/L (98-107) 04/07/23 04:20 Carbon Dioxide 27.8 mmol/L (21-32) 04/07/23 04:20 BUN 22 mg/dL (7-18) H 04/07/23 04:20 Creatinine 0.64 mg/dL (0.55-1.02) 04/07/23 04:20 Est GFR (MDRD) Af Amer > 60 (>60) 04/07/23 04:20 Est GFR (MDRD) Non-Af > 60 (>60) 04/07/23 04:20 Glucose 253 mg/dL (65-99) H 04/07/23 04:20 POC Glucose (mg/dL) 247 mg/dL (65-99) H 04/07/23 16:16 Calcium 8.1 mg/dL (8.5-10.1) L 04/07/23 04:20 Corrected Calcium 9.5 mg/dL (8.5-10.1) 04/07/23 04:20 Magnesium 2.1 mg/dL (2.0-2.9) 04/02/23 11:32 Total Bilirubin 0.60 mg/dL (0.2-1.0) 04/07/23 04:20 AST 18 Units/L (15-37) 04/07/23 04:20 ALT 25 Units/L (12-78) 04/07/23 04:20 Alkaline Phosphatase 44 Units/L (46-116) L 04/07/23 04:20 Creatine Kinase 10 Units/L (26-192) L 04/03/23 21:00 Troponin I High Sens 51.9 ng/L (4.0-60.0) 04/03/23 21:00 C-Reactive Protein 14.60 mg/L (0-3.0) H 04/07/23 04:20 B-Natriuretic Peptide 396 pg/mL (0-79) H 04/02/23 11:32 Total Protein 5.7 g/dL (6.4-8.2) L 04/07/23 04:20 Albumin 2.3 g/dL (3.4-5.0) L 04/07/23 04:20 Globulin 3.4 g/dL (2.5-4.5) 04/07/23 04:20 Albumin/Globulin Ratio 0.7 Ratio (1.1-2.1) L 04/07/23 04:20 Specimen Type Clean catch urine 04/02/23 10:53 Urine Color Pale yellow (YELLOW) 04/02/23 10:53 Urine Appearance Clear (CLEAR) 04/02/23 10:53 Urine pH 5.0 (5.0 - 8.0) 04/02/23 10:53 Ur Specific [place] 1.020 (1.000-1.030) 04/02/23 10:53 Urine Protein 1+ (NEGATIVE) 04/02/23 10:53 Urine Glucose (UA) 4+ (NEGATIVE) 04/02/23 10:53 Urine Ketones 3+ (NEGATIVE) 04/02/23 10:53 Urine Blood 2+ (NEGATIVE) 04/02/23 10:53 Urine Nitrite Negative (NEGATIVE) 04/02/23 10:53 Urine Bilirubin Negative (NEGATIVE) 04/02/23 10:53 Urine Urobilinogen Normal (NORMAL) 04/02/23 10:53 Ur Leukocyte Esterase Negative (NEGATIVE) 04/02/23 10:53 Urine RBC 0-2 /HPF (0-3) 04/02/23 10:53 Urine WBC 3-5 /HPF (0-5) 04/02/23 10:53 Ur Squamous Epith Cells Rare /HPF (NEGATIVE) 04/02/23 10:53 Urine Bacteria Trace /HPF (NEGATIVE) 04/02/23 10:53 Urine Mucus Rare /HPF (NEGATIVE) 04/02/23 10:53 Ur Culture Indicated? No/not indicated 04/02/23 10:53 Stl Occult Blood (IFOB) Negative (NEGATIVE) 04/02/23 11:42 Stl C. diff Tox B Gene Negative (NEGATIVE) 04/02/23 11:42 Stl C. diff 027-NAP1-BI Negative (NEGATIVE) 04/02/23 11:42 SARS-CoV-2 (PCR) Positive (NEGATIVE) A 04/02/23 11:17 Cryptosporid parvum Ag Negative (NEGATIVE) 04/02/23 11:42 Giardia lamblia Ag Negative (NEGATIVE) 04/02/23 11:42 Influenza Type A (PCR) Negative (NEGATIVE) 04/02/23 11:17 Influenza Type B (PCR) Negative (NEGATIVE) 04/02/23 11:17 RSV (PCR) Negative (NEGATIVE) 04/02/23 11:17 S. pyogenes (TEM-PCR) Not detected (NOT DETECT) 04/02/23 13:59 - Plan (1) COVID-19 Status: Acute Plan: NORMAL SALINE AT 75 ML/HR, REMDESIVIR 100MG IV DAILY, ROCEPHIN 1G IV DAILY, LOVENOX 40MG SC DAILY, SOLU-MEDROL 80MG IV Q8H, PROTONIX 40MG IV BID, XOPENEX NEB TX TID, HUMULIN R SLIDING SCLAE, AND HER HOME MEDICATONS WERE RESUMED. (2) Acute bronchitis Status: Acute Qualifiers: Bronchitis organism: unspecified organism Qualified Code(s): J20.9 - Acute bronchitis, unspecified (3) Hypoxia Status: Acute (4) Abnormal cardiac enzyme level Status: Acute (5) Dehydration Status: Acute (6) Generalized weakness Status: Acute Plan: PT/OT (7) Diabetes mellitus Status: Chronic Qualifiers: Diabetes mellitus type: type 2 Diabetes mellitus technician terminal and repeater insulin use: with long-term use Diabetes mellitus complication status: with hyperglycemia Qualified Code(s): E11.65 - Type 2 diabetes mellitus with hyperglycemia; Z79.4 - manager terminal (current) use of insulin (8) HTN (hypertension) Status: Chronic Qualifiers: Hypertension type: primary hypertension Qualified Code(s): I10 - Essential (primary) hypertension
[2023-04-07] MEDS: SEROquel TAB 25 mg PO SCH (20:26)
[2023-04-07] MEDS: DESYREL PO SCH (20:27)
[2023-04-07] MEDS: SNACK - Diabetic Appropriate PO SCH (21:00)
[2023-04-08] MEDS: NS 1,000 ML IV 1,000 ML IV SCH ×2 (04:18→10:08)
[2023-04-08] MEDS: SOLU-Medrol 40 MG VIAL IVP SCH ×2 (05:04→20:22)
[2023-04-08] MEDS: NovoLIN R (or HumuLIN R) SUBCUT PRN ×4 (05:51→20:31)
[2023-04-08 06:02] LABS: BASOPHILS % (AUTO) 0 % (0.2-1.0); HEMATOCRIT 39.2 % (36.0-47.0); LYMPHOCYTES # (AUTO) 0.4 X10^3/uL (1.3-2.9); LYMPHOCYTES % (AUTO) 4.6 % (21.0-51.0); MEAN CORPUSCULAR HEMOGLOBIN 31.4 pg (27.0-34.0); MEAN CORPUSCULAR HGB CONC 33.2 g/dL (33.0-35.0); MEAN CORPUSCULAR VOLUME 94.5 fL (80.0-100.0); MEAN PLATELET VOLUME 9.9 fL (7.4-11.0); MONOCYTES # (AUTO) 0.6 x10^3/uL (0.3-0.8); MONOCYTES % (AUTO) 7.7 % (0.0-13.0); NEUTROPHILS # (AUTO) 7.2 x10^3/uL (2.2-4.8); NEUTROPHILS % (AUTO) 87.7 % (42.0-75.0); PLATELET COUNT 180 X10^3/uL (150.0-450.0); RED BLOOD COUNT 4.15 X10^6/uL (3.5-5.4); RED CELL DISTRIBUTION WIDTH 14.6 % (11.6-16.5); WHITE BLOOD COUNT 8.3 X10^3/uL (3.6-10.0)
[2023-04-08 06:16] LABS: ALANINE AMINOTRANSFERASE 17 Units/L (12-78); ALBUMIN 2.2 g/dL (3.4-5.0); ALKALINE PHOSPHATASE 43 Units/L (46-116); ASPARTATE AMINO TRANSFERASE 13 Units/L (15-37); BLOOD UREA NITROGEN 24 mg/dL (7-18); CALCIUM 7.9 mg/dL (8.5-10.1); CARBON DIOXIDE 24.8 mmol/L (21-32); CHLORIDE 99 mmol/L (98-107); COR CA(FOR HYPOALB) 9.3 mg/dL (8.5-10.1); COR NA(FOR HYPERGLY) 136 mmol/L (136-145); CREATININE 0.63 mg/dL (0.55-1.02); GLUCOSE 259 mg/dL (65-99); POTASSIUM 4.4 mmol/L (3.5-5.1); SODIUM 132 mmol/L (136-145); TOTAL PROTEIN 5.5 g/dL (6.4-8.2); eGFR NON BLACK RACES > 60 (>60)
[2023-04-08] MEDS: ROCEPHIN VIAL 1 GRAM 1 G in NS 100 ML IV 100 ML IV SCH (08:42)
[2023-04-08] MEDS: JANUVIA PO SCH (08:42)
[2023-04-08] MEDS: PROTONIX INJ 40 MG VIAL IVP SCH ×2 (08:42→20:22)
[2023-04-08] MEDS: NEURONTIN TAB 600 MG PO SCH ×4 (08:43→20:23)
[2023-04-08] MEDS: COZAAR PO SCH (08:43)
[2023-04-08] MEDS: LOVENOX INJ 40 MG SYR SC SCH (08:43)
[2023-04-08] MEDS: FARXIGA PO SCH (08:43)
[2023-04-08] MEDS: XOPENEX 1.25 MG/3 ML NEBULE NEB SCH ×2 (08:59→20:00)
--- NOTE | 2023-04-08 09:20 | RAD ---
EXAM:Portable AP chestHISTORY:Short of breathCOMPARISON:April 07, 2023FINDINGS:Heart size remains normal with no evidence for developing consolidation, pulmonary edema or pleural fluid.IMPRESSION:No change or acute chest findings demonstrated.THIS IS AN ELECTRONICALLY VERIFIED FINAL [id number]/08/2023 9:16 AM - Electronically signed by Albert Godwin MD
--- NOTE | 2023-04-08 11:20 | PCM.PROG ---
Progress Note Progress Note for Day of Date of Exam: 04/08/23 Subjective Subjective: Patient seen at bedside, no acute events overnight. She is feeling a lot better. She still has generalized weakness which is slowly improving. She has not been able to ambulate much with PT. She still has villagran in place. She was admitted for COVID-19 infection, weakness and dehydration. Labs/imaging reviewed -Hgb 13 BUN/Cr 24/0.63 CRP 11.6 -CXR: no acute process Plan: continue current treatment. Taper solumedrol. Continue Rocephin, stop NS. Continue nebs prn. PT/OT as tolerated. Continue bladder training to remove villagran. Plan is to start swing bed on Monday. Monitor AM labs/imaging. Past Medical Family Social History Past Med/Fam/Surg Hx: No changes since H&P Allergies: Allergies codeine Allergy (Verified 04/02/23 10:53) Review of Systems ROS: No change since H&P Vital Signs and I&O's Vital Signs: Vital Signs Temperature 98.3 F Temperature 98.3 F Pulse Rate [Brachial] 88 Pulse Rate [Brachial] 78 Pulse Rate 70 Respiratory Rate 20 Respiratory Rate 20 Blood Pressure [Right Arm] 186/86 Blood Pressure [Right Arm] 150/67 O2 Sat by Pulse Oximetry 91 O2 Sat by Pulse Oximetry 91 O2 Sat by Pulse Oximetry 92 Intake and Output: Intake & Output 04/05/23 04/06/23 04/07/23 04/08/23 23:59 23:59 23:59 23:59 Intake Total 1864 / 1864 3673 / 3673 1857 / 1857 1171 / 1171 Output Total 1700 / 1700 4600 / 4600 3000 / 3000 1180 / 1180 Balance 164 / 164 -927 / -927 -1143 / -1143 -9 / -9 Physical Exam Oriented: Normal Eyes: Normal Ear: Normal Nose: Normal Throat: Dry Respiratory: Generalized and Diminished Cardiovascular: Normal Auscultation: Bowel Sounds: Normal Tenderness: Normal Skin: Normal Musculoskeletal: Motor Deficit Psychiatric: Normal Mood Description: Calm Speech Pattern: Clear and Appropriate Laboratory and Diagnostics 04/08/23 05:09 04/08/23 05:09 Labs: 04/02/23 11:42 Stool Stool Culture - Final 04/02/23 11:42 Stool - Final 04/02/23 21:10 Sputum - Expectorated Sputum Sputum Culture - Final 04/02/23 21:10 Sputum - Expectorated Sputum - Final Laboratory WBC 8.3 X10^3/uL (3.6-10.0) 04/08/23 05:09 RBC 4.15 X10^6/uL (3.5-5.4) 04/08/23 05:09 Hgb 13.0 g/dL (12.0-16.0) 04/08/23 05:09 Hct 39.2 % (36.0-47.0) 04/08/23 05:09 MCV 94.5 fL (80.0-100.0) 04/08/23 05:09 MCH 31.4 pg (27.0-34.0) 04/08/23 05:09 MCHC 33.2 g/dL (33.0-35.0) 04/08/23 05:09 RDW 14.6 % (11.6-16.5) 04/08/23 05:09 Plt Count 180 X10^3/uL (150.0-450.0) 04/08/23 05:09 Plt Count Comment Adequate (ADEQUATE) 04/07/23 04:20 MPV 9.9 fL (7.4-11.0) 04/08/23 05:09 Neut % (Auto) 87.7 % (42.0-75.0) H 04/08/23 05:09 Lymph % (Auto) 4.6 % (21.0-51.0) L 04/08/23 05:09 [place] % (Auto) 7.7 % (0.0-13.0) 04/08/23 05:09 Eos % (Auto) 0.0 % (0.9-2.9) L 04/08/23 05:09 Baso % (Auto) 0 % (0.2-1.0) L 04/08/23 05:09 Neut # (Auto) 7.2 x10^3/uL (2.2-4.8) H 04/08/23 05:09 Lymph # (Auto) 0.4 X10^3/uL (1.3-2.9) L 04/08/23 05:09 [place] # (Auto) 0.6 x10^3/uL (0.3-0.8) 04/08/23 05:09 Eos # (Auto) 0.0 x10^3/uL (0.0-0.2) 04/08/23 05:09 Baso # (Auto) 0.0 X10^3/uL (0.0-0.1) 04/08/23 05:09 Absolute Nucleated RBC 0.0 /100WBC 04/08/23 05:09 Total Counted 100 04/07/23 04:20 Neutrophils % (Manual) 90 % (39-76) H 04/07/23 04:20 Band Neutrophils % 1 % (0-10) 04/07/23 04:20 Lymphocytes % (Manual) 3 % (13-43) L 04/07/23 04:20 Monocytes % (Manual) 5 % (4-9) 04/07/23 04:20 Metamyelocytes % 1 04/07/23 04:20 Plt Morphology Comment Normal (NORMAL) 04/07/23 04:20 RBC Morphology Normal (NORMAL) 04/07/23 04:20 Sample Site [facility] 04/02/23 10:55 ABG pH 7.370 (7.35-7.45) 04/02/23 10:55 ABG pCO2 42.0 mmHg (35.0-45.0) 04/02/23 10:55 ABG pO2 65.0 mmHg (80.0-100.0) L 04/02/23 10:55 ABG HCO3 24.3 mmol/L (22-26) 04/02/23 10:55 ABG O2 Saturation 92.0 % (90-100) 04/02/23 10:55 ABG Base Excess -1.0 mmol/L (-2.0-2.0) 04/02/23 10:55 Luis Alberto Test N/a 04/02/23 10:55 A-a Gradient 82.0 mmHg 04/02/23 10:55 FiO2 28.0 04/02/23 10:55 Blood Gas Comments Pt shmuel well elj 04/02/23 10:55 Sodium 132 mmol/L (136-145) L 04/08/23 05:09 Corrected Sodium 136 mmol/L (136-145) 04/08/23 05:09 Potassium 4.4 mmol/L (3.5-5.1) 04/08/23 05:09 Chloride 99 mmol/L (98-107) 04/08/23 05:09 Carbon Dioxide 24.8 mmol/L (21-32) 04/08/23 05:09 BUN 24 mg/dL (7-18) H 04/08/23 05:09 Creatinine 0.63 mg/dL (0.55-1.02) 04/08/23 05:09 Est GFR (MDRD) Af Amer > 60 (>60) 04/08/23 05:09 Est GFR (MDRD) Non-Af > 60 (>60) 04/08/23 05:09 Glucose 259 mg/dL (65-99) H 04/08/23 05:09 POC Glucose (mg/dL) 235 mg/dL (65-99) H 04/08/23 11:04 Calcium 7.9 mg/dL (8.5-10.1) L 04/08/23 05:09 Corrected Calcium 9.3 mg/dL (8.5-10.1) 04/08/23 05:09 Magnesium 2.1 mg/dL (2.0-2.9) 04/02/23 11:32 Total Bilirubin 0.80 mg/dL (0.2-1.0) 04/08/23 05:09 AST 13 Units/L (15-37) L 04/08/23 05:09 ALT 17 Units/L (12-78) 04/08/23 05:09 Alkaline Phosphatase 43 Units/L (46-116) L 04/08/23 05:09 Creatine Kinase 10 Units/L (26-192) L 04/03/23 21:00 Troponin I High Sens 51.9 ng/L (4.0-60.0) 04/03/23 21:00 C-Reactive Protein 11.20 mg/L (0-3.0) H 04/08/23 05:09 B-Natriuretic Peptide 396 pg/mL (0-79) H 04/02/23 11:32 Total Protein 5.5 g/dL (6.4-8.2) L 04/08/23 05:09 Albumin 2.2 g/dL (3.4-5.0) L 04/08/23 05:09 Globulin 3.3 g/dL (2.5-4.5) 04/08/23 05:09 Albumin/Globulin Ratio 0.7 Ratio (1.1-2.1) L 04/08/23 05:09 Specimen Type Clean catch urine 04/02/23 10:53 Urine Color Pale yellow (YELLOW) 04/02/23 10:53 Urine Appearance Clear (CLEAR) 04/02/23 10:53 Urine pH 5.0 (5.0 - 8.0) 04/02/23 10:53 Ur Specific [place] 1.020 (1.000-1.030) 04/02/23 10:53 Urine Protein 1+ (NEGATIVE) 04/02/23 10:53 Urine Glucose (UA) 4+ (NEGATIVE) 04/02/23 10:53 Urine Ketones 3+ (NEGATIVE) 04/02/23 10:53 Urine Blood 2+ (NEGATIVE) 04/02/23 10:53 Urine Nitrite Negative (NEGATIVE) 04/02/23 10:53 Urine Bilirubin Negative (NEGATIVE) 04/02/23 10:53 Urine Urobilinogen Normal (NORMAL) 04/02/23 10:53 Ur Leukocyte Esterase Negative (NEGATIVE) 04/02/23 10:53 Urine RBC 0-2 /HPF (0-3) 04/02/23 10:53 Urine WBC 3-5 /HPF (0-5) 04/02/23 10:53 Ur Squamous Epith Cells Rare /HPF (NEGATIVE) 04/02/23 10:53 Urine Bacteria Trace /HPF (NEGATIVE) 04/02/23 10:53 Urine Mucus Rare /HPF (NEGATIVE) 04/02/23 10:53 Ur Culture Indicated? No/not indicated 04/02/23 10:53 Stl Occult Blood (IFOB) Negative (NEGATIVE) 04/02/23 11:42 Stl C. diff Tox B Gene Negative (NEGATIVE) 04/02/23 11:42 Stl C. diff 027-NAP1-BI Negative (NEGATIVE) 04/02/23 11:42 SARS-CoV-2 (PCR) Positive (NEGATIVE) A 04/02/23 11:17 Cryptosporid parvum Ag Negative (NEGATIVE) 04/02/23 11:42 Giardia lamblia Ag Negative (NEGATIVE) 04/02/23 11:42 Influenza Type A (PCR) Negative (NEGATIVE) 04/02/23 11:17 Influenza Type B (PCR) Negative (NEGATIVE) 04/02/23 11:17 RSV (PCR) Negative (NEGATIVE) 04/02/23 11:17 S. pyogenes (TEM-PCR) Not detected (NOT DETECT) 04/02/23 13:59 Plan (1) COVID-19: Status: Acute (2) Acute bronchitis: Status: Acute Qualifiers: Bronchitis organism: unspecified organism Qualified Code(s): J20.9 - Acute bronchitis, unspecified (3) Hypoxia: Status: Acute (4) Abnormal cardiac enzyme level: Status: Acute (5) Dehydration: Status: Acute (6) Generalized weakness: Status: Acute Plan: PT/OT (7) Diabetes mellitus: Status: Chronic Qualifiers: Diabetes mellitus complication status: with hyperglycemia Diabetes mellitus equipment operator intermodal yard insulin use: with equipment operator intermodal yard use Diabetes mellitus type: type 2 Qualified Code(s): E11.65 - Type 2 diabetes mellitus with hyperglycemia; Z79. 4 - FCI (current) use of insulin (8) HTN (hypertension): Status: Chronic Qualifiers: Hypertension type: primary hypertension Qualified Code(s): I10 - Essential (primary) hypertension
[2023-04-08] MEDS: SNACK - Diabetic Appropriate PO SCH (20:23)
[2023-04-08] MEDS: DESYREL PO SCH (20:23)
[2023-04-08] MEDS: SEROquel TAB 25 mg PO SCH (20:26)
[2023-04-09 05:38] LABS: BASOPHILS % (AUTO) 0.2 % (0.2-1.0); HEMATOCRIT 40.3 % (36.0-47.0); HEMOGLOBIN 13.4 g/dL (12.0-16.0); LYMPHOCYTES # (AUTO) 0.2 X10^3/uL (1.3-2.9); LYMPHOCYTES % (AUTO) 3.4 % (21.0-51.0); MEAN CORPUSCULAR HEMOGLOBIN 31.6 pg (27.0-34.0); MEAN CORPUSCULAR HGB CONC 33.2 g/dL (33.0-35.0); MEAN CORPUSCULAR VOLUME 95.3 fL (80.0-100.0); MONOCYTES # (AUTO) 0.4 x10^3/uL (0.3-0.8); MONOCYTES % (AUTO) 6.3 % (0.0-13.0); NEUTROPHILS # (AUTO) 6.3 x10^3/uL (2.2-4.8); NEUTROPHILS % (AUTO) 90.1 % (42.0-75.0); PLATELET COUNT 164 X10^3/uL (150.0-450.0); RED BLOOD COUNT 4.23 X10^6/uL (3.5-5.4); RED CELL DISTRIBUTION WIDTH 14.5 % (11.6-16.5)
[2023-04-09 05:58] LABS: ALANINE AMINOTRANSFERASE 15 Units/L (12-78); ALBUMIN 2.3 g/dL (3.4-5.0); ALKALINE PHOSPHATASE 40 Units/L (46-116); ASPARTATE AMINO TRANSFERASE 10 Units/L (15-37); BLOOD UREA NITROGEN 26 mg/dL (7-18); CALCIUM 8.1 mg/dL (8.5-10.1); CARBON DIOXIDE 27.6 mmol/L (21-32); CHLORIDE 100 mmol/L (98-107); COR CA(FOR HYPOALB) 9.5 mg/dL (8.5-10.1); COR NA(FOR HYPERGLY) 138 mmol/L (136-145); CREATININE 0.73 mg/dL (0.55-1.02); GLUCOSE 327 mg/dL (65-99); POTASSIUM 4.7 mmol/L (3.5-5.1); SODIUM 133 mmol/L (136-145); TOTAL PROTEIN 5.5 g/dL (6.4-8.2); eGFR NON BLACK RACES > 60 (>60)
[2023-04-09] MEDS: NovoLIN R (or HumuLIN R) SUBCUT PRN ×4 (05:59→20:05)
[2023-04-09 06:01] LABS: BAND NEUTROPHILS % 2 % (0-10); METAMYELOCYTES % 2; MYELOCYTES % 1; PLATELET MORPHOLOGY COMMENT NORMAL (NORMAL)
[2023-04-09] MEDS: FARXIGA PO SCH (08:40)
[2023-04-09] MEDS: COZAAR PO SCH (08:41)
[2023-04-09] MEDS: JANUVIA PO SCH (08:42)
[2023-04-09] MEDS: SOLU-Medrol 40 MG VIAL IVP SCH (08:43)
[2023-04-09] MEDS: NEURONTIN TAB 600 MG PO SCH ×4 (08:43→20:04)
[2023-04-09] MEDS: ROCEPHIN VIAL 1 GRAM 1 G in NS 100 ML IV 100 ML IV SCH (08:46)
[2023-04-09] MEDS: PROTONIX INJ 40 MG VIAL IVP SCH ×2 (08:48→20:05)
[2023-04-09] MEDS: LOVENOX INJ 40 MG SYR SC SCH (08:50)
[2023-04-09] MEDS: XOPENEX 1.25 MG/3 ML NEBULE NEB SCH ×2 (09:11→20:05)
--- NOTE | 2023-04-09 12:36 | PCM.PROG ---
Progress Note Progress Note for Day of Date of Exam: 04/09/23 Subjective Subjective: Patient seen at bedside, no acute events overnight. She still has generalized weakness which is slowly improving. She has not been able to ambulate much with PT. She still has villagran in place. She was admitted for COVID-19 infection, weakness and dehydration. Labs/imaging reviewed -Hgb 13.4 BUN/Cr 26/0.73 -CXR: no acute process Plan: continue current treatment. Stop solumedrol. Continue Rocephin. Continue nebs prn. PT/OT as tolerated. Continue bladder training to remove villagran. Plan is to start swing bed on Monday. Monitor AM labs/imaging. Past Medical Family Social History Past Med/Fam/Surg Hx: No changes since H&P Allergies: Allergies codeine Allergy (Verified 04/02/23 10:53) Review of Systems ROS: No change since H&P Vital Signs and I&O's Vital Signs: Vital Signs Temperature 98.6 F Pulse Rate [Brachial] 88 Pulse Rate 75 Respiratory Rate 20 Blood Pressure [Right Arm] 135/63 O2 Sat by Pulse Oximetry 92 O2 Sat by Pulse Oximetry 90 Intake and Output: Intake & Output 04/06/23 04/07/23 04/08/23 04/09/23 23:59 23:59 23:59 23:59 Intake Total 3673 / 3673 1857 / 1857 2703 / 2703 946 / 946 Output Total 4600 / 4600 3000 / 3000 2155 / 2155 1300 / 1300 Balance -927 / -927 -1143 / -1143 548 / 548 -354 / -354 Physical Exam Oriented: Normal Eyes: Normal Ear: Normal Nose: Normal Throat: Dry Respiratory: Generalized and Diminished Cardiovascular: Normal Auscultation: Bowel Sounds: Normal Tenderness: Normal Skin: Normal Musculoskeletal: Motor Deficit Psychiatric: Normal Mood Description: Calm Speech Pattern: Clear and Appropriate Laboratory and Diagnostics 04/09/23 05:01 04/09/23 05:01 Labs: 04/02/23 11:42 Stool Stool Culture - Final 04/02/23 11:42 Stool - Final 04/02/23 21:10 Sputum - Expectorated Sputum Sputum Culture - Final 04/02/23 21:10 Sputum - Expectorated Sputum - Final Laboratory WBC 7.0 X10^3/uL (3.6-10.0) 04/09/23 05:01 RBC 4.23 X10^6/uL (3.5-5.4) 04/09/23 05:01 Hgb 13.4 g/dL (12.0-16.0) 04/09/23 05:01 Hct 40.3 % (36.0-47.0) 04/09/23 05:01 MCV 95.3 fL (80.0-100.0) 04/09/23 05:01 MCH 31.6 pg (27.0-34.0) 04/09/23 05:01 MCHC 33.2 g/dL (33.0-35.0) 04/09/23 05:01 RDW 14.5 % (11.6-16.5) 04/09/23 05:01 Plt Count 164 X10^3/uL (150.0-450.0) 04/09/23 05:01 Plt Count Comment Adequate (ADEQUATE) 04/09/23 05:01 MPV 10.0 fL (7.4-11.0) 04/09/23 05:01 Neut % (Auto) 90.1 % (42.0-75.0) H 04/09/23 05:01 Lymph % (Auto) 3.4 % (21.0-51.0) L 04/09/23 05:01 [place] % (Auto) 6.3 % (0.0-13.0) 04/09/23 05:01 Eos % (Auto) 0.0 % (0.9-2.9) L 04/09/23 05:01 Baso % (Auto) 0.2 % (0.2-1.0) 04/09/23 05:01 Neut # (Auto) 6.3 x10^3/uL (2.2-4.8) H 04/09/23 05:01 Lymph # (Auto) 0.2 X10^3/uL (1.3-2.9) L 04/09/23 05:01 [place] # (Auto) 0.4 x10^3/uL (0.3-0.8) 04/09/23 05:01 Eos # (Auto) 0.0 x10^3/uL (0.0-0.2) 04/09/23 05:01 Baso # (Auto) 0.0 X10^3/uL (0.0-0.1) 04/09/23 05:01 Absolute Nucleated RBC 0.0 /100WBC 04/09/23 05:01 Total Counted 100 04/09/23 05:01 Neutrophils % (Manual) 85 % (39-76) H 04/09/23 05:01 Band Neutrophils % 2 % (0-10) 04/09/23 05:01 Lymphocytes % (Manual) 4 % (13-43) L 04/09/23 05:01 Monocytes % (Manual) 6 % (4-9) 04/09/23 05:01 Metamyelocytes % 2 04/09/23 05:01 Myelocytes % 1 04/09/23 05:01 Plt Morphology Comment Normal (NORMAL) 04/09/23 05:01 RBC Morphology Normal (NORMAL) 04/09/23 05:01 Sample Site [facility] 04/02/23 10:55 ABG pH 7.370 (7.35-7.45) 04/02/23 10:55 ABG pCO2 42.0 mmHg (35.0-45.0) 04/02/23 10:55 ABG pO2 65.0 mmHg (80.0-100.0) L 04/02/23 10:55 ABG HCO3 24.3 mmol/L (22-26) 04/02/23 10:55 ABG O2 Saturation 92.0 % (90-100) 04/02/23 10:55 ABG Base Excess -1.0 mmol/L (-2.0-2.0) 04/02/23 10:55 Luis Alberto Test N/a 04/02/23 10:55 A-a Gradient 82.0 mmHg 04/02/23 10:55 FiO2 28.0 04/02/23 10:55 Blood Gas Comments Pt shmuel well elj 04/02/23 10:55 Sodium 133 mmol/L (136-145) L 04/09/23 05:01 Corrected Sodium 138 mmol/L (136-145) 04/09/23 05:01 Potassium 4.7 mmol/L (3.5-5.1) 04/09/23 05:01 Chloride 100 mmol/L (98-107) 04/09/23 05:01 Carbon Dioxide 27.6 mmol/L (21-32) 04/09/23 05:01 BUN 26 mg/dL (7-18) H 04/09/23 05:01 Creatinine 0.73 mg/dL (0.55-1.02) 04/09/23 05:01 Est GFR (MDRD) Af Amer > 60 (>60) 04/09/23 05:01 Est GFR (MDRD) Non-Af > 60 (>60) 04/09/23 05:01 Glucose 327 mg/dL (65-99) H 04/09/23 05:01 POC Glucose (mg/dL) 246 mg/dL (65-99) H 04/09/23 11:28 Calcium 8.1 mg/dL (8.5-10.1) L 04/09/23 05:01 Corrected Calcium 9.5 mg/dL (8.5-10.1) 04/09/23 05:01 Magnesium 2.1 mg/dL (2.0-2.9) 04/02/23 11:32 Total Bilirubin 0.80 mg/dL (0.2-1.0) 04/09/23 05:01 AST 10 Units/L (15-37) L 04/09/23 05:01 ALT 15 Units/L (12-78) 04/09/23 05:01 Alkaline Phosphatase 40 Units/L (46-116) L 04/09/23 05:01 Creatine Kinase 10 Units/L (26-192) L 04/03/23 21:00 Troponin I High Sens 51.9 ng/L (4.0-60.0) 04/03/23 21:00 C-Reactive Protein 8.00 mg/L (0-3.0) H 04/09/23 05:01 B-Natriuretic Peptide 396 pg/mL (0-79) H 04/02/23 11:32 Total Protein 5.5 g/dL (6.4-8.2) L 04/09/23 05:01 Albumin 2.3 g/dL (3.4-5.0) L 04/09/23 05:01 Globulin 3.2 g/dL (2.5-4.5) 04/09/23 05:01 Albumin/Globulin Ratio 0.7 Ratio (1.1-2.1) L 04/09/23 05:01 Specimen Type Clean catch urine 04/02/23 10:53 Urine Color Pale yellow (YELLOW) 04/02/23 10:53 Urine Appearance Clear (CLEAR) 04/02/23 10:53 Urine pH 5.0 (5.0 - 8.0) 04/02/23 10:53 Ur Specific [place] 1.020 (1.000-1.030) 04/02/23 10:53 Urine Protein 1+ (NEGATIVE) 04/02/23 10:53 Urine Glucose (UA) 4+ (NEGATIVE) 04/02/23 10:53 Urine Ketones 3+ (NEGATIVE) 04/02/23 10:53 Urine Blood 2+ (NEGATIVE) 04/02/23 10:53 Urine Nitrite Negative (NEGATIVE) 04/02/23 10:53 Urine Bilirubin Negative (NEGATIVE) 04/02/23 10:53 Urine Urobilinogen Normal (NORMAL) 04/02/23 10:53 Ur Leukocyte Esterase Negative (NEGATIVE) 04/02/23 10:53 Urine RBC 0-2 /HPF (0-3) 04/02/23 10:53 Urine WBC 3-5 /HPF (0-5) 04/02/23 10:53 Ur Squamous Epith Cells Rare /HPF (NEGATIVE) 04/02/23 10:53 Urine Bacteria Trace /HPF (NEGATIVE) 04/02/23 10:53 Urine Mucus Rare /HPF (NEGATIVE) 04/02/23 10:53 Ur Culture Indicated? No/not indicated 04/02/23 10:53 Stl Occult Blood (IFOB) Negative (NEGATIVE) 04/02/23 11:42 Stl C. diff Tox B Gene Negative (NEGATIVE) 04/02/23 11:42 Stl C. diff 027-NAP1-BI Negative (NEGATIVE) 04/02/23 11:42 SARS-CoV-2 (PCR) Positive (NEGATIVE) A 04/02/23 11:17 Cryptosporid parvum Ag Negative (NEGATIVE) 04/02/23 11:42 Giardia lamblia Ag Negative (NEGATIVE) 04/02/23 11:42 Influenza Type A (PCR) Negative (NEGATIVE) 04/02/23 11:17 Influenza Type B (PCR) Negative (NEGATIVE) 04/02/23 11:17 RSV (PCR) Negative (NEGATIVE) 04/02/23 11:17 S. pyogenes (TEM-PCR) Not detected (NOT DETECT) 04/02/23 13:59 Plan (1) COVID-19: Status: Acute (2) Acute bronchitis: Status: Acute Qualifiers: Bronchitis organism: unspecified organism Qualified Code(s): J20.9 - Acute bronchitis, unspecified (3) Hypoxia: Status: Acute (4) Abnormal cardiac enzyme level: Status: Acute (5) Dehydration: Status: Acute (6) Generalized weakness: Status: Acute Plan: PT/OT (7) Diabetes mellitus: Status: Chronic Qualifiers: Diabetes mellitus complication status: with hyperglycemia Diabetes mellitus long term care pharmacist insulin use: with long term care pharmacist use Diabetes mellitus type: type 2 Qualified Code(s): E11.65 - Type 2 diabetes mellitus with hyperglycemia; 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
[2023-04-09] MEDS: SEROquel TAB 25 mg PO SCH (20:04)
[2023-04-09] MEDS: DESYREL PO SCH (20:05)
[2023-04-09] MEDS: SNACK - Diabetic Appropriate PO SCH (20:05)
[2023-04-10 04:04] VITALS: RESP 18
[2023-04-10 05:53] LABS: BASOPHILS % (AUTO) 0.1 % (0.2-1.0); EOSINOPHILS % (AUTO) 0.3 % (0.9-2.9); HEMATOCRIT 39.9 % (36.0-47.0); HEMOGLOBIN 13.2 g/dL (12.0-16.0); LYMPHOCYTES # (AUTO) 1.1 X10^3/uL (1.3-2.9); LYMPHOCYTES % (AUTO) 11.8 % (21.0-51.0); MEAN CORPUSCULAR HEMOGLOBIN 31.3 pg (27.0-34.0); MEAN CORPUSCULAR HGB CONC 33.2 g/dL (33.0-35.0); MEAN CORPUSCULAR VOLUME 94.4 fL (80.0-100.0); MEAN PLATELET VOLUME 10.5 fL (7.4-11.0); MONOCYTES # (AUTO) 1.4 x10^3/uL (0.3-0.8); MONOCYTES % (AUTO) 14.9 % (0.0-13.0); NEUTROPHILS # (AUTO) 6.8 x10^3/uL (2.2-4.8); NEUTROPHILS % (AUTO) 72.9 % (42.0-75.0); PLATELET COUNT 189 X10^3/uL (150.0-450.0); RED BLOOD COUNT 4.23 X10^6/uL (3.5-5.4); RED CELL DISTRIBUTION WIDTH 14.7 % (11.6-16.5); WHITE BLOOD COUNT 9.3 X10^3/uL (3.6-10.0)
[2023-04-10 06:03] LABS: ALANINE AMINOTRANSFERASE 14 Units/L (12-78); ALBUMIN 2.3 g/dL (3.4-5.0); ALKALINE PHOSPHATASE 40 Units/L (46-116); ASPARTATE AMINO TRANSFERASE 11 Units/L (15-37); BLOOD UREA NITROGEN 22 mg/dL (7-18); CARBON DIOXIDE 29.6 mmol/L (21-32); CHLORIDE 99 mmol/L (98-107); COR CA(FOR HYPOALB) 9.4 mg/dL (8.5-10.1); COR NA(FOR HYPERGLY) 134 mmol/L (136-145); CREATININE 0.61 mg/dL (0.55-1.02); GLUCOSE 184 mg/dL (65-99); POTASSIUM 4.2 mmol/L (3.5-5.1); SODIUM 132 mmol/L (136-145); TOTAL PROTEIN 5.3 g/dL (6.4-8.2); eGFR NON BLACK RACES > 60 (>60)
[2023-04-10 06:11] LABS: BAND NEUTROPHILS % 4 % (0-10); METAMYELOCYTES % 1; MYELOCYTES % 1; PLATELET MORPHOLOGY COMMENT NORMAL (NORMAL)
[2023-04-10 08:10] VITALS: TEMP 98.4; O2SAT 91
[2023-04-10] MEDS: COZAAR PO SCH (09:28)
[2023-04-10] MEDS: NEURONTIN TAB 600 MG PO SCH ×2 (09:29→12:37)
[2023-04-10] MEDS: FARXIGA PO SCH (09:29)
[2023-04-10] MEDS: ROCEPHIN VIAL 1 GRAM 1 G in NS 100 ML IV 100 ML IV SCH (09:29)
[2023-04-10] MEDS: PROTONIX INJ 40 MG VIAL IVP SCH (09:29)
[2023-04-10] MEDS: LOVENOX INJ 40 MG SYR SC SCH (09:29)
[2023-04-10] MEDS: JANUVIA PO SCH (09:29)
[2023-04-10] MEDS: XOPENEX 1.25 MG/3 ML NEBULE NEB SCH (10:22)
[2023-04-10] MEDS: TYLENOL 325 MG TAB PO PRN (11:05)
--- NOTE | 2023-04-10 12:08 | PCM.PROG ---
Progress Note - Progress Note for Day of Date of Exam: 04/07/23 - Subjective Subjective: IS A 87 YEAR OLD PATIENT OF OURS. SHE IS CURRENTLY INPATIENT STATUS FOR TREATMENT OF COVID-19, HYPOXIA, DEHYDRATION, AND ABNORMAL CARDIAC ENZYMES. SHE HAS A PMH OF DM II, HTN, OVERACTIVE BLADDER, AND CHRONIC PAIN. SHE DENIES HX OF CAD. ACCORDING TO PATIENT, HER SX OF COUGH, SOB, AND CONGESTION STARTED TWO DAYS PRIOR TO ADMISSION. SHE WAS HYPOXIC WITH OXYGEN SATURATIONS IN THE UPPER 70s UPON EMS ARRIVAL. TODAY, SHE IS ALERT AND ORIENTED, LYING IN BED ON MORNING ROUNDS. SHE COMPLAINS OF PERSISTENT GENERALIZED WEAKNESS THIS MORNING. ON EXAMINATION, HEART IS REGULAR IN RATE AND RHYTHM. BILATERAL LUNGS ARE NOTED WITH DIMINISHED LUNG SOUNDS THROUGHOUT. ABDOMEN IS ROUND, SOFT, AND NON-TENDER WITH NORMAL BOWEL SOUNDS NOTED IN ALL QUADRANTS. WEAKNESS OF LOWER EXTREMITIES NOTED, BUT NO EDEMA IS PRESENT. HER VITALS THIS MORNING ARE: 98.0-82-22-92%-184/80. SHE IS CURRENTLY UTILIZING OXYGEN VIA NASAL CANNULA AT 3 LPM. LABS WERE OBTAINED. WBC 8.1, RBC 4.13, HGB 13.1, HCT 38.6, PLT COUNT 183, SODIUM 133, POTASSIUM 4.0, CHLORIDE 99, BUN 22, CREATININE 0.64, GLUCOSE 253, CALCIUM 8.1, TOTAL BILI 0.60, AST 18, ALT 25, ALK PHOS 44, CRP 14.60, TOTAL PROTEIN 5.7, ALBUMIN 2.3. A CHEST XRAY WAS OBTAINED THIS MORNING AND REVEALED: NO ACUTE CHEST FINDINGS. ECHO REVEALED AN AJECTION FRACTION OF 61%. SHE IS CURRENTLY RECEVING NORMAL SALINE AT 75 ML/HR, ROCEPHIN 1G IV DAILY, LOVENOX 40MG SC DAILY, SOLU-MEDROL 80MG IV Q8H, PROTONIX 40MG IV BID, XOPENEX NEB TX BID, HUMULIN R SLIDING SCALE, AND HER HOME MEDICATONS WERE RESUMED. PHYSICAL THERAPY RECOMMENDS CONTINUED THERAPY AT A RESIDENTIAL FACILITY. PATIENT AND HER FAMILY ARE AGREEABLE TO SWINGBED STAY FOR PHYSICAL THERAPY AND REHAB. WE WILL CONTINUE WITH CURRENT PLAN OF CARE TODAY. OTHERWISE, WE WILL FOLLOW-UP WITH AM LABS AND CONTINUE TO MONITOR. TIME SPENT ON CLINICAL ASSESSMENT, REVIEWING LABS AND IMAGING, DECISION MAKING, AND DOCUMENTATION GREATER THAN 45 MINUTES. - Past Medical Family Social History Past Med/Fam/Surg Hx: No changes since H&P Allergies: Allergies codeine Allergy (Verified 04/02/23 10:53) - Review of Systems ROS: No change since H&P - Vital Signs and I&O's Vital Signs: Vital Signs Temperature 98.4 F Pulse Rate [Brachial] 60 Respiratory Rate 18 Respiratory Rate 18 Blood Pressure [Right Arm] 148/67 O2 Sat by Pulse Oximetry 91 Intake and Output: Intake & Output 04/08/23 04/09/23 04/10/23 04/11/23 11:59 11:59 11:59 11:59 Intake Total 2580 / 2580 2478 / 2478 1365 / 1365 Output Total 3680 / 3680 2275 / 2275 3400 / 3400 Balance -1100 / -1100 -2034 / - Physical Exam Oriented: Normal Eyes: Normal Ear: Normal Nose: Normal Throat: Dry Respiratory: Generalized, Diminished Cardiovascular: Normal : Normal Auscultation: Bowel Sounds: Normal Palpation: Normal Tenderness: Normal Skin: Normal Musculoskeletal: Motor Deficit Psychiatric: Normal Mood Description: Calm Speech Pattern: Clear, Appropriate - Laboratory and Diagnostics Result Diagrams: 04/10/23 05:14 04/10/23 05:14 Labs: 04/02/23 11:42 Stool Stool Culture - Final 04/02/23 11:42 Stool - Final 04/02/23 21:10 Sputum - Expectorated Sputum Sputum Culture - Final 04/02/23 21:10 Sputum - Expectorated Sputum - Final Laboratory WBC 9.3 X10^3/uL (3.6-10.0) 04/10/23 05:14 RBC 4.23 X10^6/uL (3.5-5.4) 04/10/23 05:14 Hgb 13.2 g/dL (12.0-16.0) 04/10/23 05:14 Hct 39.9 % (36.0-47.0) 04/10/23 05:14 MCV 94.4 fL (80.0-100.0) 04/10/23 05:14 MCH 31.3 pg (27.0-34.0) 04/10/23 05:14 MCHC 33.2 g/dL (33.0-35.0) 04/10/23 05:14 RDW 14.7 % (11.6-16.5) 04/10/23 05:14 Plt Count 189 X10^3/uL (150.0-450.0) 04/10/23 05:14 Plt Count Comment Adequate (ADEQUATE) 04/10/23 05:14 MPV 10.5 fL (7.4-11.0) 04/10/23 05:14 Neut % (Auto) 72.9 % (42.0-75.0) 04/10/23 05:14 Lymph % (Auto) 11.8 % (21.0-51.0) L 04/10/23 05:14 Hooker % (Auto) 14.9 % (0.0-13.0) H 04/10/23 05:14 Eos % (Auto) 0.3 % (0.9-2.9) L 04/10/23 05:14 Baso % (Auto) 0.1 % (0.2-1.0) L 04/10/23 05:14 Neut # (Auto) 6.8 x10^3/uL (2.2-4.8) H 04/10/23 05:14 Lymph # (Auto) 1.1 X10^3/uL (1.3-2.9) L 04/10/23 05:14 Hooker # (Auto) 1.4 x10^3/uL (0.3-0.8) H 04/10/23 05:14 Eos # (Auto) 0.0 x10^3/uL (0.0-0.2) 04/10/23 05:14 Baso # (Auto) 0.0 X10^3/uL (0.0-0.1) 04/10/23 05:14 Absolute Nucleated RBC 0.0 /100WBC 04/10/23 05:14 Total Counted 100 04/10/23 05:14 Neutrophils % (Manual) 65 % (39-76) 04/10/23 05:14 Band Neutrophils % 4 % (0-10) 04/10/23 05:14 Lymphocytes % (Manual) 15 % (13-43) 04/10/23 05:14 Monocytes % (Manual) 13 % (4-9) H 04/10/23 05:14 Eosinophils % (Manual) 1 % (0-6) 04/10/23 05:14 Metamyelocytes % 1 04/10/23 05:14 Myelocytes % 1 04/10/23 05:14 Plt Morphology Comment Normal (NORMAL) 04/10/23 05:14 RBC Morphology Normal (NORMAL) 04/10/23 05:14 Sample Site [facility] 04/02/23 10:55 ABG pH 7.370 (7.35-7.45) 04/02/23 10:55 ABG pCO2 42.0 mmHg (35.0-45.0) 04/02/23 10:55 ABG pO2 65.0 mmHg (80.0-100.0) L 04/02/23 10:55 ABG HCO3 24.3 mmol/L (22-26) 04/02/23 10:55 ABG O2 Saturation 92.0 % (90-100) 04/02/23 10:55 ABG Base Excess -1.0 mmol/L (-2.0-2.0) 04/02/23 10:55 Luis Alberto Test N/a 04/02/23 10:55 A-a Gradient 82.0 mmHg 04/02/23 10:55 FiO2 28.0 04/02/23 10:55 Blood Gas Comments Pt shmuel well elj 04/02/23 10:55 Sodium 132 mmol/L (136-145) L 04/10/23 05:14 Corrected Sodium 134 mmol/L (136-145) L 04/10/23 05:14 Potassium 4.2 mmol/L (3.5-5.1) 04/10/23 05:14 Chloride 99 mmol/L (98-107) 04/10/23 05:14 Carbon Dioxide 29.6 mmol/L (21-32) 04/10/23 05:14 BUN 22 mg/dL (7-18) H 04/10/23 05:14 Creatinine 0.61 mg/dL (0.55-1.02) 04/10/23 05:14 Est GFR (MDRD) Af Amer > 60 (>60) 04/10/23 05:14 Est GFR (MDRD) Non-Af > 60 (>60) 04/10/23 05:14 Glucose 184 mg/dL (65-99) H 04/10/23 05:14 POC Glucose (mg/dL) 170 mg/dL (65-99) H 04/10/23 05:00 Calcium 8.0 mg/dL (8.5-10.1) L 04/10/23 05:14 Corrected Calcium 9.4 mg/dL (8.5-10.1) 04/10/23 05:14 Magnesium 2.1 mg/dL (2.0-2.9) 04/02/23 11:32 Total Bilirubin 0.90 mg/dL (0.2-1.0) 04/10/23 05:14 AST 11 Units/L (15-37) L 04/10/23 05:14 ALT 14 Units/L (12-78) 04/10/23 05:14 Alkaline Phosphatase 40 Units/L (46-116) L 04/10/23 05:14 Creatine Kinase 10 Units/L (26-192) L 04/03/23 21:00 Troponin I High Sens 51.9 ng/L (4.0-60.0) 04/03/23 21:00 C-Reactive Protein 8.00 mg/L (0-3.0) H 04/09/23 05:01 B-Natriuretic Peptide 396 pg/mL (0-79) H 04/02/23 11:32 Total Protein 5.3 g/dL (6.4-8.2) L 04/10/23 05:14 Albumin 2.3 g/dL (3.4-5.0) L 04/10/23 05:14 Globulin 3.0 g/dL (2.5-4.5) 04/10/23 05:14 Albumin/Globulin Ratio 0.8 Ratio (1.1-2.1) L 04/10/23 05:14 Specimen Type Clean catch urine 04/02/23 10:53 Urine Color Pale yellow (YELLOW) 04/02/23 10:53 Urine Appearance Clear (CLEAR) 04/02/23 10:53 Urine pH 5.0 (5.0 - 8.0) 04/02/23 10:53 Ur Specific Padroni 1.020 (1.000-1.030) 04/02/23 10:53 Urine Protein 1+ (NEGATIVE) 04/02/23 10:53 Urine Glucose (UA) 4+ (NEGATIVE) 04/02/23 10:53 Urine Ketones 3+ (NEGATIVE) 04/02/23 10:53 Urine Blood 2+ (NEGATIVE) 04/02/23 10:53 Urine Nitrite Negative (NEGATIVE) 04/02/23 10:53 Urine Bilirubin Negative (NEGATIVE) 04/02/23 10:53 Urine Urobilinogen Normal (NORMAL) 04/02/23 10:53 Ur Leukocyte Esterase Negative (NEGATIVE) 04/02/23 10:53 Urine RBC 0-2 /HPF (0-3) 04/02/23 10:53 Urine WBC 3-5 /HPF (0-5) 04/02/23 10:53 Ur Squamous Epith Cells Rare /HPF (NEGATIVE) 04/02/23 10:53 Urine Bacteria Trace /HPF (NEGATIVE) 04/02/23 10:53 Urine Mucus Rare /HPF (NEGATIVE) 04/02/23 10:53 Ur Culture Indicated? No/not indicated 04/02/23 10:53 Stl Occult Blood (IFOB) Negative (NEGATIVE) 04/02/23 11:42 Stl C. diff Tox B Gene Negative (NEGATIVE) 04/02/23 11:42 Stl C. diff [id number] Negative (NEGATIVE) 04/02/23 11:42 SARS-CoV-2 (PCR) Positive (NEGATIVE) A 04/02/23 11:17 Cryptosporid parvum Ag Negative (NEGATIVE) 04/02/23 11:42 Giardia lamblia Ag Negative (NEGATIVE) 04/02/23 11:42 Influenza Type A (PCR) Negative (NEGATIVE) 04/02/23 11:17 Influenza Type B (PCR) Negative (NEGATIVE) 04/02/23 11:17 RSV (PCR) Negative (NEGATIVE) 04/02/23 11:17 S. pyogenes (TEM-PCR) Not detected (NOT DETECT) 04/02/23 13:59 - Plan (1) COVID-19 Status: Acute Plan: NORMAL SALINE AT 75 ML/HR, ROCEPHIN 1G IV DAILY, LOVENOX 40MG SC DAILY, SOLU-MEDROL 80MG IV Q8H, PROTONIX 40MG IV BID, XOPENEX NEB TX TID, HUMULIN R SLIDING SCLAE, AND HER HOME MEDICATONS WERE RESUMED. 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
[2023-04-10 12:25] VITALS: BP 118/56; PULSE 76
[2023-04-10] MEDS: NovoLIN R (or HumuLIN R) SUBCUT PRN (12:37)
== END 2023-04-10 12:59 | disposition swing bed (61) | DRG 179 ==
LOC: ER 10:30 → MED/SURG 17:20
PROVIDERS: ADMIT Internal Medicine; ATTEND Internal Medicine
DX: R77.8 Other specified abnormalities of plasma proteins; R06.02 Shortness of breath; R26.89 Other abnormalities of gait and mobility; E86.0 Dehydration; E11.65 Type 2 diabetes mellitus with hyperglycemia; Z79.4 Long term (current) use of insulin; U07.1 COVID-19; R09.02 Hypoxemia; J20.8 Acute bronchitis due to other specified organisms; I10 Essential (primary) hypertension; Z73.89 Other problems related to life management difficulty; R79.82 Elevated C-reactive protein (CRP); R53.1 Weakness